=== PATIENT | female | born 1955 | race African-American/Black ===

== ENCOUNTER 2016-11-15 16:59 | Inpatient (IN) ==
[2016-11-15] MEDS ORDERED: ALBUTEROL 2.5 MG/3 ML NEB RESP TX PRN (17:06)
[2016-11-15] MEDS: PROPOFOL 1,000 MG/100 ML BOTTLE IV SCH ×2 (19:00→22:40)
--- NOTE | 2016-11-15 19:53 | Hospitalist History & Physical ---
Assessment and Plan (1) Acute respiratory failure with hypercapnia Status: Acute Assessment and plan: Patient currently intubated. We will repeat an arterial blood gas with intention of changing vent settings depending as needed. Will get pulmonary consultation in the morning. Obtain sputum Gram stain and culture. A chest x- ray in the morning. Patient is admitted to the intensive care unit and hospitalist service. (2) Status asthmaticus Status: Acute Assessment and plan: Aggressively treated with beta-2 agonists and ipratropium bromide. Patient should also be on high-dose steroids using Solu-Medrol 40 mg IV every 6 hours. Encourage pulmonary toilet continue sedation with Diprivan from in soft restraints for the next 24 hours. (3) Hypertension Status: Acute Assessment and plan: This is relatively controlled continue home medications. (4) Altered mental status Status: Acute Assessment and plan: From what I understand the patient arrived at [facility] unresponsive and CPR had been started in the field prior to coming to the hospital. Duration of CPR prior to intubation is unknown. Anoxic injury to the brain is a possibility but patient is not responsive to tactile stimulus and follows simple commands. History of Present Illness Chief complaint: Acute respiratory failure intubated History of present illness: Ms. Suárez is a 60 year old female transferred here from [facility] [place] been picked up by first responders with complaints of an asthmatic attack and subsequently needing intubation in the field. Patient reportedly was outside in the hot sun according to my colleagues was signed of this patient to me. Does have history of asthma. I do not know of any other exposure history that could have happened today. Nonetheless the patient was found to have insufficient respiratory status and a being entered and I noticed that the first arterial blood gas done prior to arrival he has profound respiratory acidosis with pH below 7. PCO2 was around 19 PO2 was adequate. Patient at that time was 100% oxygen supplementation. She does have an effective intubation here will repeat an ABG with intention to change vent settings as indicated. Home Medications Medication Instructions Recorded Confirmed Type Levocetirizine Dihydrochloride 5 mg PO DAILY 11/15/16 11/15/16 History [Xyzal] Lisinopril/Hydrochlorothiazide 2 each PO DAILY 11/15/16 11/15/16 History [Lisinopril-Hctz 20-12.5 mg Tab] Pantoprazole Tab [Protonix Tab] 40 mg PO DAILY 11/15/16 11/15/16 History Allergies Allergy/AdvReac Type Severity Reaction Status Date / Time egg Allergy Verified 11/15/16 19:53 milk Allergy Verified 11/15/16 19:53 tomato Allergy Verified 11/15/16 19:53 Medical,Surgical,& Family Hx - Medical History Cardio: History of: Hypertension Endocrine: History of: Thyroid Disorder Respiratory: History of: Asthma Gastrointestinal: History of: Ulcerative Colitis - Surgical History Cardiac Surgeries: Patient Denies: Cardiac Catheterization Abdominal Surgeries: Surgical HX of: Abdominal Surgery, Cholecystectomy, EGD Reproductive Surgeries: Surgical HX of;: Hysterectomy - Social History Smoking Status: Former smoker ROS unobtainable: due to endotracheal tube Review of systems: 12 point system screen is significant for the chief complaint history of presenting illness and past medical history Exam - Constitutional Vitals: Period Temp Pulse Resp BP Sys/Sparks Pulse Ox Last 24 Hr 97.2 F 96-104 18-23 0-171/0-81 100-100 General appearance: morbidly obese, other (Patient is sedated intubated on incommunicado) - Head Head exam: Present: normocephalic, atraumatic - Eye Pupils: Present: FELISHA - ENT ENT exam: Present: other (Orally intubated) - Neck Neck exam: Present: other (Pulmonary intubated no JVD midline trachea) - GI/Abdominal GI/Abdominal exam: Present: normal bowel sounds, soft - Extremities Exam Extremities exam: Present: other (I cannot assess effectively) - Neurological Exam Neurological exam: Present: other (Patient is sedated intubated) - Psychiatric Psychiatric exam: Present: other (Sedated) - Skin Skin exam: Present: normal color, warm, dry Results - Labs Lab Results: I have reviewed the past 24 hour labs (All labs are pending at this point)
[2016-11-15] MEDS ORDERED: PROPOFOL 1,000 MG/100 ML BOTTLE IV SCH (20:00)
[2016-11-15 20:15] LABS: ABG Base Excess -0.6 MMOL/L (-2.5-2.5); ABG HCO3 23.9 MMOL/L (20-26); ABG Oxygen Saturation 98.6 % (95-100); ABG PCO2 45.9 MM HG (35-48); ABG PH 7.353 (7.35-7.45); ABG TCO2 21.7 MMOL/L (23-27)
[2016-11-15 20:19] LABS: Basophils % 0.1 % (0.0-0.8); Eosinophils % 0.2 % (0.00-10.9); Hematocrit 34.9 VOL% (35.7-47.0); Hemoglobin 11.1 GM/DL (12.0-16.0); Immature Granulocytes % 0.6 %; Lymphocytes # 1.3 10*3/uL (1.4-4.0); Lymphocytes % 7.5 % (21.3-54.2); Mean Corpuscular HGB Conc 31.8 GM/DL (32-36); Mean Corpuscular Hemoglobin 28 PG (27-34); Mean Corpuscular Volume 86.6 FL (87-102); Mean Platelet Volume 11.8 FL (9.6-12.0); Monocytes # 0.6 10*3/uL (0.11-0.8); Monocytes % 3.4 % (1.7-12.7); Neutrophils # 15.5 10*3/uL (1.4-7.4); Neutrophils % 88.2 % (38.7-73.9); Platelet Count 224 T/CUMM (130-400); Red Blood Count 4.03 MC/CUMM (3.8-5.5); Red Cell Distribution Width 15.4 % (9.3-17.3); White Blood Count 17.6 T/CUMM (4-12)
[2016-11-15 20:29] LABS: PT Patient Result 10.6 SECS
[2016-11-15 20:38] LABS: Lactic Acid 3.3 MMOL/L (0.4-2.0)
[2016-11-15 20:45] LABS: Calcium 8.5 MG/DL (8.5-10.1)
[2016-11-15 20:46] LABS: Albumin 3.8 G/DL (3.4-5.0); Bilirubin,Total 0.7 MG/DL (0.2-1.0); Free T4 (Free Thyroxine) 1.1 NG/DL (0.76-1.46); Magnesium 2.4 MG/DL (1.8-2.4); Osmolality,Calculated 290.1 MOS/KG (273-304); Potassium 3.4 MMOL/L (3.5-5.1); Risk Ratio 3.89; Thyroid Stimulating Hormone 1.96 uIU/ml (0.358-3.74); Total Protein 6.9 G/DL (6.4-8.3); Troponin I Only 0.125 NG/ML (0.00-0.045); VLDL CHOLESTEROL 22.4 MG/DL
[2016-11-15] MEDS ORDERED: methylPREDNISolone SOD SUC 125 MG/2 ML VIAL IV SCH (21:00)
[2016-11-15] MEDS: SODIUM CHLORIDE 0.9% 1,000 ML IV SCH (21:56)
[2016-11-15 22:07] LABS: Apearance,Urine CLOUDY (Clear); Bilirubin,Urine Negative (Negative); Blood, Urine Negative (Negative); Glucose,Urine (UA) 50 mg/dL (Negative); Hyaline Casts,Urine 2 /LPF (0-3); Ketones,Urine 5 mg/dL (Negative); Mucus,Urine Occasional /LPF (Occasional); Nitrite,Urine Negative (Negative); Protein,Urine Negative; RBC,Urine 1 /HPF (0-4); Squamous Epithelial Cell,Urine Occasional /HPF (0-10); Urine Color Yellow (Yellow); Urine Specific Gravity 1.024 (1.001-1.035); Urine Urobilinogen < 2.0 EU/DL (0.2-1.0); WBC,Urine 1 /HPF (0-6)
[2016-11-15] MEDS ORDERED: ACETAMINOPHEN 325 MG TABLET PO PRN (22:09)
[2016-11-15 22:14] LABS: Barbiturates Screen,Urine Negative (Negative); Benzodiazepines Screen,Urine Positive (Negative); Cannabinoid Screen,Urine Negative (Negative); Opiate Screen,Urine Positive (Negative); Phencyclidine Screen,Urine Negative (Negative)
[2016-11-15] MEDS: ENOXAPARIN 40 MG/0.4 ML SYRINGE SUBCUT SCH (22:16)
[2016-11-15] MEDS: methylPREDNISolone SOD SUC 40 MG/1 ML VIAL IV SCH (22:17)
[2016-11-15] MEDS: PANTOPRAZOLE 40 MG VIAL IV SCH (22:17)
[2016-11-16] MEDS: PROPOFOL 1,000 MG/100 ML BOTTLE IV SCH ×5 (02:22→17:45)
[2016-11-16] MEDS: methylPREDNISolone SOD SUC 40 MG/1 ML VIAL IV SCH ×3 (04:16→21:46)
[2016-11-16] MEDS: POTASSIUM CHLORIDE RIDER 10 MEQ in PREMIX 1 EACH IV PRN ×3 (05:16→07:01)
[2016-11-16] MEDS: PIPERACILLIN/TAZOBACTAM 3,375 MG in SODIUM CHLORIDE 0.9% 100 ML IV SCH ×3 (05:17→21:46)
--- NOTE | 2016-11-16 06:24 | XRay Report ---
Portable chest Date: 11/16/2016 Clinical history: Acute respiratory failure Comparison: None Technique: Portable AP sitting chest Findings: Limited expiratory chest. The heart is minimally enlarged. Endotracheal tube is in satisfactory position with nasogastric tube seen entering the stomach. Atelectasis/infiltration at the right lung base and in the left mid to lower lung zone. Unremarkable mediastinum with degenerative changes. Impression: Limited expiratory chest with atelectasis/infiltration at the right lung base and in the left mid to lower lung zone. The supportive devices are in satisfactory position. PROCEDURE INTERPRETED AT [facility] DEPARTMENT OF RADIOLOGY Final Report Signed by: Dr. Akua Kwon
--- NOTE | 2016-11-16 06:45 | Pulmonology Consult Note ---
Assessment and Plan (1) Acute respiratory failure with hypercapnia Status: Acute Assessment and plan: ABGs better. Will reduce minute ventilation a little. I think we need a higher tidal volume because of her history of asthma. Start weaning when mental status is stable. Current Visit: Yes (2) Status asthmaticus Status: Acute Assessment and plan: Is not wheezing. Airway pressures are not high. Continuing with empiric steroids and bronchodilators. Her home medications appeared to be albuterol in several different forms as far as treatment of her asthma is concerned. She will definitely need a controller medication which we get her off the vent. Current Visit: Yes (3) Hypertension Status: Acute Assessment and plan: Blood pressure well controlled. Current Visit: Yes (4) Altered mental status Status: Acute Assessment and plan: She is moving about. Difficult to tell about her mental status with her on the propofol. We will hold it and assess. Current Visit: Yes History of Present Illness Chief complaint: Respiratory failure History of present illness: Ms. Suárez is a 60 year old female apparently had been working outside yesterday and was found down in her yard. She had an inhaler in her hand. She was picked up by ambulance and intubated and had CPR. Apparently has a history of asthma. Presently she is on the ventilator. Unable to obtain much more history from her. Most of the history is obtained from records. She had a marked respiratory acidosis initially and this is for the most part been corrected now. Home Medications Medication Instructions Recorded Confirmed Type Albuterol Inhaler [Proventil 2 puff INH Q6H PRN 11/15/16 11/15/16 History Inhaler] Levocetirizine Dihydrochloride 5 mg PO DAILY 11/15/16 11/15/16 History [Xyzal] Lisinopril/Hydrochlorothiazide 2 each PO DAILY 11/15/16 11/15/16 History [Lisinopril-Hctz 20-12.5 mg Tab] Pantoprazole Tab [Protonix Tab] 40 mg PO DAILY 11/15/16 11/15/16 History Allergies Allergy/AdvReac Type Severity Reaction Status Date / Time egg Allergy Verified 11/15/16 19:53 milk Allergy Verified 11/15/16 19:53 tomato Allergy Verified 11/15/16 19:53 ROS unobtainable: due to endotracheal tube Exam (Pulmonay) H&P - Constitutional Vitals: Period Temp Pulse Resp BP Sys/Sparks Pulse Ox Last 24 Hr 97.2 F-98.5 F 67-104 18-24 0-171/0-81 100-100 Exam: Vital signs are normal. Patient is trying to sit up in the bed. She does have propofol on board. Pupils react to light. Orotracheal tube in place. Neck is supple. Chest sounds clear. I do not hear any wheezing. Heart normal rate and rhythm no murmurs. Abdomen is soft bowel sounds present. Extremities no clubbing cyanosis or edema. Medical,Surgical,& Family Hx - Medical History Cardio: History of: Hypertension Endocrine: History of: Thyroid Disorder Respiratory: History of: Asthma Gastrointestinal: History of: Ulcerative Colitis - Surgical History Cardiac Surgeries: Patient Denies: Cardiac Catheterization Abdominal Surgeries: Surgical HX of: Abdominal Surgery, Cholecystectomy, EGD Reproductive Surgeries: Surgical HX of;: Hysterectomy - Social History Smoking Status: Former smoker Results - Labs CBC & BMP: 11/15/16 19:53 11/15/16 19:53 Lab Results: I have reviewed the past 24 hour labs - Diagnostic Findings Procedure: Chest x-ray: image reviewed by me (ET tube good position. Lungs relatively small but no visible infiltrates.)
[2016-11-16] MEDS: VANCOMYCIN INJ 1,750 MG in SODIUM CHLORIDE 0.9% 500 ML IV SCH ×2 (07:59→20:39)
[2016-11-16 08:41] LABS: ABG Base Excess -0.5 MMOL/L (-2.5-2.5); ABG Oxygen Saturation 98.9 % (95-100); ABG PCO2 47.6 MM HG (35-48); ABG PH 7.339 (7.35-7.45); ABG TCO2 23.5 MMOL/L (23-27)
[2016-11-16] MEDS: LISINOPRIL/HCTZ 20-12.5 MG TABLET PO SCH (09:04)
[2016-11-16] MEDS: CETIRIZINE 10 MG TABLET PO SCH (09:04)
[2016-11-16] MEDS ORDERED: DEXMEDETOMIDINE 200 MCG in SODIUM CHLORIDE 0.9% 48 ML IV SCH (09:30)
--- NOTE | 2016-11-16 09:58 | Hospitalist Progress Note ---
Assessment and Plan (1) Acute respiratory failure with hypercapnia Status: Acute Current Visit: Yes (2) Status asthmaticus Status: Acute Current Visit: Yes (3) Hypertension Status: Acute Current Visit: Yes (4) Altered mental status Status: Acute Assessment and plan: Patient's ABG display is pH of 7.339. Chemistry available was the one drawn last night. Did note that H her lactic acid is elevated. She is hypertensive and on broad coverage antibiotics. She is not wheezing. We will also have her on empiric steroids. She should be able to be weaned from the ventilator fairly soon since it appears that her mental status is improving. I repeat labs in the morning. Current Visit: Yes Hospitalist: Subjective Interval history: Patient will wake up and follow commands only complains about pain in her throat area. Exam - Constitutional Vitals: Period Temp Pulse Resp BP Sys/Sparks Pulse Ox Last 24 Hr 97.2 F-98.5 F 67-104 11-24 0-171/0-81 96-100 General appearance: normal weight - Head Head exam: Present: normal inspection - ENT ENT exam: Present: other (ET tube in place) - Neck Neck exam: Present: normal inspection - Respiratory Respiratory exam: Present: clear to auscultation bilaterally - Cardiovascular Cardiovascular exam: Present: regular rate and rhythm - GI/Abdominal GI/Abdominal exam: Present: normal bowel sounds - Extremities Exam Extremities exam: Present: normal inspection - Psychiatric Psychiatric exam: Present: other (Currently sedated) - Skin Skin exam: Present: normal color Results - Labs CBC & BMP: 11/15/16 19:53 11/15/16 19:53
[2016-11-16] MEDS: HYDROmorphone 2 MG/1 ML VIAL IV PRN ×2 (10:15→21:15)
[2016-11-16] MEDS: SODIUM CHLORIDE 0.9% 1,000 ML IV SCH ×3 (11:00→20:39)
--- NOTE | 2016-11-16 12:35 | ECHO Report ---
Melodie Suárez Exam Date: 11/16/2016 09:07 Referring Physician: Technologist: Johanny Cole Age: 60 Ht (in): Wt (lb): Gender: F Exam Location: [facility] Echo Indications: SOB, acute resp. failure, asthmaticus, altered mental status BP: 103 / 57 HR: 69 Rhythm: Sinus Technical Quality: IMPRESSIONS Normal chamber sizes 2-3+ concentric LVH Hyperdynamic LV systolic function with ejection fraction estimated be 70% without segmental wall motion normality 1+ tricuspid regurgitation with RVSP 35 mmHg plus RAP MEASUREMENTS (Male / Female) Normal Values 2D ECHO LV Diastolic Diameter PLAX 3.8 cm 4.2 - 5.9 / 3.9 - 5.3 cm LV Systolic Diameter PLAX 2.6 cm LV Fractional Shortening PLAX 30.5 % IVS Diastolic Thickness 1.5 cm 0.6 - 1.0 / 0.6 - 0.9 cm LVPW Diastolic Thickness 1.2 cm 0.6 - 1.0 / 0.6 - 0.9 cm RV Internal Dim ED PLAX 3.0 cm Aortic Root Diameter 3.3 cm LA Systolic Diameter LX 3.6 cm 3.0 - 4.0 / 2.7 - 3.8 cm DOPPLER TR Peak Velocity 296.0 cm/s TR Peak Gradient 35.0 mmHg FINDINGS Left Ventricle Normal left ventricular cavity size. Mild concentric left ventricular hypertrophy with diastolic dysfunction. Left ventricular ejection fraction is estimated at Right Ventricle Mildly increased right ventricular size. Right Atrium The right atrium is mildly enlarged. Left Atrium The left atrium is mildly enlarged. Mitral Valve Mild mitral valve sclerosis. Trace mitral valve regurgitation. Aortic Valve Mild aortic valve sclerosis. Tricuspid Valve Morphologically normal tricuspid valve. Moderate tricuspid valve regurgitation. Tricuspid regurgitation velocities suggest a PAP of 45 mmHg. Pulmonic Valve Morphologically normal pulmonic valve. Pericardium No pericardial effusion. Aorta Normal size aortic root and proximal ascending aorta. Richard Prado (Electronically Signed) Final Date: 16 November 2016 12:34
[2016-11-16] MEDS ORDERED: fentaNYL INJ 1,250 MCG in SODIUM CHLORIDE 0.9% 225 ML IV SCH (14:30)
[2016-11-16] MEDS ORDERED: DEXMEDETOMIDINE 400 MCG in SODIUM CHLORIDE 0.9% 96 ML IV SCH (15:00)
[2016-11-16] MEDS: ENOXAPARIN 40 MG/0.4 ML SYRINGE SUBCUT SCH (21:42)
[2016-11-16] MEDS: PANTOPRAZOLE 40 MG VIAL IV SCH (21:43)
[2016-11-17] MEDS: ALBUTEROL/IPRATROPIUM 3 ML NEB RESP TX PRN ×3 (01:08→19:26)
[2016-11-17] MEDS: PROPOFOL 1,000 MG/100 ML BOTTLE IV SCH ×2 (03:40→17:56)
[2016-11-17 04:01] LABS: Basophils % 0.1 % (0.0-0.8); Hematocrit 31.4 VOL% (35.7-47.0); Hemoglobin 10.2 GM/DL (12.0-16.0); Immature Granulocytes % 1.1 %; Immature Granulocytes Absolute 0.28 #; Lymphocytes # 1.5 10*3/uL (1.4-4.0); Lymphocytes % 5.9 % (21.3-54.2); Mean Corpuscular HGB Conc 32.5 GM/DL (32-36); Mean Corpuscular Hemoglobin 28 PG (27-34); Mean Corpuscular Volume 85.6 FL (87-102); Mean Platelet Volume 12.5 FL (9.6-12.0); Monocytes # 0.7 10*3/uL (0.11-0.8); Monocytes % 2.8 % (1.7-12.7); Neutrophils # 22.4 10*3/uL (1.4-7.4); Neutrophils % 90.1 % (38.7-73.9); Platelet Count 224 T/CUMM (130-400); Red Blood Count 3.67 MC/CUMM (3.8-5.5); Red Cell Distribution Width 16.2 % (9.3-17.3); White Blood Count 24.9 T/CUMM (4-12)
[2016-11-17 04:02] LABS: ABG Base Excess -0.3 MMOL/L (-2.5-2.5); ABG HCO3 24.2 MMOL/L (20-26); ABG Oxygen Saturation 99.3 % (95-100); ABG PCO2 38.5 MM HG (35-48); ABG PH 7.407 (7.35-7.45)
[2016-11-17] MEDS: HYDROmorphone 2 MG/1 ML VIAL IV PRN (04:03)
[2016-11-17 04:44] LABS: Alanine Aminotransferase 26 U/L (13-56); Albumin 3.3 G/DL (3.4-5.0); Alkaline Phosphatase 65 U/L (45-117); Aspartate Amino Transferase 14 U/L (0-37); Bilirubin,Total < 0.39 MG/DL (0.2-1.0); Blood Urea Nitrogen 19 MG/DL (7-18); Calcium 8.5 MG/DL (8.5-10.1); Glucose 130 MG/DL (74-106); Osmolality,Calculated 295.4 MOS/KG (273-304); Potassium 3.7 MMOL/L (3.5-5.1); Sodium 147 MMOL/L (136-145); Total Protein 6.1 G/DL (6.4-8.3)
[2016-11-17 04:59] LABS: Band Neutrophils 2 % (0-10); Lymphocytes 7 % (20-55); Metamyelocytes 3 %; Platelet Estimate Normal; Segmented Neutrophils 86 % (50-85); Total Cells Counted 100
[2016-11-17] MEDS: PIPERACILLIN/TAZOBACTAM 3,375 MG in SODIUM CHLORIDE 0.9% 100 ML IV SCH ×3 (05:20→20:35)
[2016-11-17] MEDS: methylPREDNISolone SOD SUC 40 MG/1 ML VIAL IV SCH ×3 (05:21→20:37)
[2016-11-17] MEDS: SODIUM CHLORIDE 0.9% 1,000 ML IV SCH ×3 (05:24→20:11)
--- NOTE | 2016-11-17 07:11 | XRay Report ---
Portable chest Date: 11/17/2016 Clinical history: Ventilator Comparison: 11/16/2016 Technique: Portable AP sitting chest Findings: The heart is minimally enlarged with stable supportive devices. Progressive parenchymal findings with minimally larger pleural effusions. Stable mediastinum and osseous structures. Impression: Limited expiratory chest with minimally progressive atelectasis/infiltration/edema at the lung bases. Minimally larger small pleural effusions. Supportive devices remain in satisfactory position. PROCEDURE INTERPRETED AT [facility] DEPARTMENT OF RADIOLOGY Final Report Signed by: Dr. Akua Kwon
--- NOTE | 2016-11-17 07:18 | Pulmonology Progress Note ---
Pulmonary - PN: Subj Interval history: This 60-year-old white female had acute respiratory failure. She has a history of asthma and had status asthmaticus. She is on the ventilator. Much more alert. Tolerating CPAP. Should be able to extubate. Exam (Progress Note) - Constitutional Vitals: Period Temp Pulse Resp BP Sys/Sparks Pulse Ox Last 24 Hr 96.1 F-97.6 F 38-91 10-23 102-172/53-87 96-100 Exam: Patient responsive nodding to questions. Vital signs normal. Pupils react to light. Orotracheal tube in place. Neck supple no bruits. Chest reveals prolonged expiratory phase but no wheezes. I do not hear any rales or rhonchi. Heart rate is in the 40s no murmurs. Abdomen soft nontender no masses. Extremities no clubbing cyanosis edema. Calves nontender. Results - Labs CBC & BMP: 11/17/16 03:40 11/17/16 03:40 Lab Results: I have reviewed the past 24 hour labs - Diagnostic Findings Procedure: Chest x-ray: image reviewed by me (Mild basilar atelectasis. ET tube good position.) Assessment and Plan (1) Acute respiratory failure with hypercapnia Status: Acute Assessment and plan: ABGs better. Will reduce minute ventilation a little. I think we need a higher tidal volume because of her history of asthma. Start weaning when mental status is stable. 11/17/2016 ABGs improved. Will check mechanics and see if we can get her extubated. Current Visit: Yes (2) Status asthmaticus Status: Acute Assessment and plan: Is not wheezing. Airway pressures are not high. Continuing with empiric steroids and bronchodilators. Her home medications appeared to be albuterol in several different forms as far as treatment of her asthma is concerned. She will definitely need a controller medication which we get her off the vent. 11/17/2016 no bronchospasm. However pressures good. Current Visit: Yes (3) Hypertension Status: Acute Assessment and plan: Blood pressure well controlled. 11/17/2016 she has LVH on echo but hyperdynamic left ventricle. Blood pressure well controlled Current Visit: Yes (4) Altered mental status Status: Acute Assessment and plan: She is moving about. Difficult to tell about her mental status with her on the propofol. We will hold it and assess. 11/17/2016 patient appropriately responsive. Nods to questions squeezes fingers on command Current Visit: Yes
[2016-11-17] MEDS: VANCOMYCIN INJ 1,750 MG in SODIUM CHLORIDE 0.9% 500 ML IV SCH ×2 (08:20→20:36)
[2016-11-17] MEDS: LISINOPRIL/HCTZ 20-12.5 MG TABLET PO SCH (08:21)
[2016-11-17] MEDS: CETIRIZINE 10 MG TABLET PO SCH (08:21)
[2016-11-17 09:44] LABS: ABG Base Excess -0.9 MMOL/L (-2.5-2.5); ABG HCO3 24.9 MMOL/L (20-26); ABG Oxygen Saturation 97.4 % (95-100); ABG PCO2 46.4 MM HG (35-48); ABG PH 7.348 (7.35-7.45); ABG PO2 103.5 MM HG (80-95); ABG TCO2 26.4 MMOL/L (23-27)
[2016-11-17 10:57] LABS: ABG Base Excess -1.1 MMOL/L (-2.5-2.5); ABG HCO3 23.4 MMOL/L (20-26); ABG Oxygen Saturation 92.7 % (95-100); ABG PCO2 47.5 MM HG (35-48); ABG PO2 69.2 MM HG (80-95)
--- NOTE | 2016-11-17 17:45 | Hospitalist Progress Note ---
Assessment and Plan (1) Status asthmaticus Status: Resolved Assessment and plan: Patient is now extubated. Current Visit: Yes (2) Hypertension Status: Chronic Current Visit: Yes Qualifiers: Hypertension type: essential hypertension Qualified Code(s): I10 - Essential (primary) hypertension Hospitalist: Subjective Interval history: The patient is resting she is now extubated. She continues to do well. Hemodynamics are stable. Exam - Constitutional Vitals: Period Temp Pulse Resp BP Sys/Sparks Pulse Ox Last 24 Hr 96.1 F-98.8 F 38-78 11-23 113-165/53-81 94-100 General appearance: normal weight - Head Head exam: Present: normal inspection - Eye Eye exam: Present: EOMI - Respiratory Respiratory exam: Present: clear to auscultation bilaterally - Cardiovascular Cardiovascular exam: Present: regular rate and rhythm - GI/Abdominal GI/Abdominal exam: Present: normal bowel sounds - Extremities Exam Extremities exam: Present: normal inspection Results - Labs CBC & BMP: 11/17/16 03:40 11/17/16 03:40
[2016-11-17] MEDS: ENOXAPARIN 40 MG/0.4 ML SYRINGE SUBCUT SCH (20:35)
[2016-11-17] MEDS: PANTOPRAZOLE 40 MG VIAL IV SCH (20:37)
[2016-11-18] MEDS: SODIUM CHLORIDE 0.9% 1,000 ML IV SCH ×2 (01:05→13:31)
[2016-11-18 05:04] LABS: Basophils % 0.1 % (0.0-0.8); Eosinophils % 0.1 % (0.00-10.9); Hematocrit 30.6 VOL% (35.7-47.0); Hemoglobin 9.5 GM/DL (12.0-16.0); Immature Granulocytes % 2.4 %; Immature Granulocytes Absolute 0.46 #; Lymphocytes # 1.5 10*3/uL (1.4-4.0); Lymphocytes % 7.7 % (21.3-54.2); Mean Corpuscular Hemoglobin 28 PG (27-34); Mean Corpuscular Volume 88.7 FL (87-102); Mean Platelet Volume 11.9 FL (9.6-12.0); Monocytes # 0.5 10*3/uL (0.11-0.8); Monocytes % 2.7 % (1.7-12.7); NRBC # 0.02 10*3/uL; Neutrophils # 16.6 10*3/uL (1.4-7.4); Platelet Count 204 T/CUMM (130-400); Red Blood Count 3.45 MC/CUMM (3.8-5.5); Red Cell Distribution Width 16.4 % (9.3-17.3)
[2016-11-18] MEDS: PIPERACILLIN/TAZOBACTAM 3,375 MG in SODIUM CHLORIDE 0.9% 100 ML IV SCH ×3 (05:22→22:46)
[2016-11-18] MEDS: methylPREDNISolone SOD SUC 40 MG/1 ML VIAL IV SCH ×3 (05:22→20:52)
[2016-11-18 05:34] LABS: Osmolality,Calculated 290.7 MOS/KG (273-304); Potassium 3.9 MMOL/L (3.5-5.1)
--- NOTE | 2016-11-18 07:07 | XRay Report ---
Exam: XR chest 1V portable Date: 11/18/2016 4:00 AM Indication: Follow-up Comparison: 11/17/2016. Findings:: Endotracheal tube nasogastric tube have been removed. Cardiomegaly is present. External cardiac leads are present. No pneumothorax. Tiny low volume left effusion and interstitial thickening in the left perihilar region. Mild dextroscoliotic curve in the thoracic spine present. Impression: 1. Removal of endotracheal tube nasogastric tube 2. Cardiomegaly and low volume left effusion and mild interstitial thickening in the perihilar regions left greater than right with minimal right basilar atelectasis PROCEDURE INTERPRETED AT [facility] DEPARTMENT OF RADIOLOGY Final Report Signed by: Dr. Mitchell Mcfarland
[2016-11-18] MEDS: ALBUTEROL/IPRATROPIUM 3 ML NEB RESP TX PRN (08:01)
--- NOTE | 2016-11-18 08:21 | Pulmonology Progress Note ---
Pulmonary - PN: Subj Interval history: This 60-year-old white female had acute respiratory failure. She has a history of asthma and had status asthmaticus. She is on the ventilator. Much more alert. Tolerating CPAP. Should be able to extubate. 11/18/2016 we were able to get her extubated yesterday. Oxygen saturations in the upper 90s on room air. She has the sensation that she needs a breathing treatment but she sounds clear. Apparently has severe asthma and was in status asthmaticus. This has improved with treatment. She should be able to go to the floor today Exam (Progress Note) - Constitutional Vitals: Period Temp Pulse Resp BP Sys/Sparks Pulse Ox Last 24 Hr 98.0 F-98.9 F 46-78 11-23 116-175/7-99 94-100 Exam: Patient responsive nodding to questions. Vital signs normal. Pupils react to light. Patient now on room air and is oriented. Neck supple no bruits. Chest reveals prolonged expiratory phase but no wheezes. I do not hear any rales or rhonchi. Heart rate is in the 50s no murmurs. Abdomen soft nontender no masses. Extremities no clubbing cyanosis edema. Calves nontender. Results - Labs CBC & BMP: 11/18/16 04:30 11/18/16 04:30 Lab Results: I have reviewed the past 24 hour labs - Diagnostic Findings Procedure: Chest x-ray: image reviewed by me (Minimal left basilar infiltrate) Assessment and Plan (1) Acute respiratory failure with hypercapnia Status: Acute Assessment and plan: ABGs better. Will reduce minute ventilation a little. I think we need a higher tidal volume because of her history of asthma. Start weaning when mental status is stable. 11/17/2016 ABGs improved. Will check mechanics and see if we can get her extubated. 11/18/2016 we were able to get her extubated. She is doing well with room air at present. Acute respiratory failure has resolved Current Visit: Yes (2) Status asthmaticus Status: Resolved Assessment and plan: Is not wheezing. Airway pressures are not high. Continuing with empiric steroids and bronchodilators. Her home medications appeared to be albuterol in several different forms as far as treatment of her asthma is concerned. She will definitely need a controller medication which we get her off the vent. 11/17/2016 no bronchospasm. However pressures good. 11/18/2016 she has chronic asthma. However status has resolved. Current Visit: Yes (3) Hypertension Status: Chronic Assessment and plan: Blood pressure well controlled. 11/17/2016 she has LVH on echo but hyperdynamic left ventricle. Blood pressure well controlled 11/18/2016 blood pressures elevated. She has LVH indicating chronic hypertension. Needs medications adjusted Current Visit: Yes Qualifiers: Hypertension type: essential hypertension Qualified Code(s): I10 - Essential (primary) hypertension (4) Altered mental status Status: Acute Assessment and plan: She is moving about. Difficult to tell about her mental status with her on the propofol. We will hold it and assess. 11/17/2016 patient appropriately responsive. Nods to questions squeezes fingers on command 11/18/2016 patient alert and oriented this morning. Has good voice. Current Visit: Yes
[2016-11-18] MEDS: VANCOMYCIN INJ 1,750 MG in SODIUM CHLORIDE 0.9% 500 ML IV SCH ×2 (11:31→19:48)
[2016-11-18] MEDS: LISINOPRIL/HCTZ 20-12.5 MG TABLET PO SCH (11:53)
[2016-11-18] MEDS: CETIRIZINE 10 MG TABLET PO SCH (11:54)
[2016-11-18] MEDS: amLODIPine 5 MG TABLET PO SCH (11:54)
--- NOTE | 2016-11-18 12:26 | Hospitalist Progress Note ---
Assessment and Plan (1) Status asthmaticus Status: Resolved Assessment and plan: Patient is stable Current Visit: Yes (2) Hypertension Status: Chronic Current Visit: Yes Qualifiers: Hypertension type: essential hypertension Qualified Code(s): I10 - Essential (primary) hypertension Hospitalist: Subjective Interval history: Patient is resting comfortably no acute changes. She has been extubated for the past 24 hours and has been without any complaints or difficulties. Plan to transfer to floor today. Exam - Constitutional Vitals: Period Temp Pulse Resp BP Sys/Sparks Pulse Ox Last 24 Hr 98.0 F-98.9 F 46-73 15-22 116-181/7-99 95-100 General appearance: normal weight - Head Head exam: Present: normal inspection - Eye Eye exam: Present: EOMI - Respiratory Respiratory exam: Present: clear to auscultation bilaterally - Cardiovascular Cardiovascular exam: Present: regular rate and rhythm - GI/Abdominal GI/Abdominal exam: Present: normal bowel sounds - Extremities Exam Extremities exam: Present: normal inspection - Neurological Exam Neurological exam: Present: alert - Psychiatric Psychiatric exam: Present: normal affect - Skin Skin exam: Present: normal color Results - Labs CBC & BMP: 11/18/16 04:30 11/18/16 04:30
[2016-11-18] MEDS ORDERED: ALBUTEROL 2.5 MG/3 ML NEB RESP TX PRN (16:36)
[2016-11-18] MEDS: ENOXAPARIN 40 MG/0.4 ML SYRINGE SUBCUT SCH (20:52)
[2016-11-19 05:07] LABS: Basophils % 0.1 % (0.0-0.8); Eosinophils % 0.1 % (0.00-10.9); Hematocrit 31.3 VOL% (35.7-47.0); Hemoglobin 9.9 GM/DL (12.0-16.0); Immature Granulocytes % 4.6 %; Immature Granulocytes Absolute 0.79 #; Lymphocytes # 1.7 10*3/uL (1.4-4.0); Mean Corpuscular HGB Conc 31.6 GM/DL (32-36); Mean Corpuscular Hemoglobin 28 PG (27-34); Mean Corpuscular Volume 87.2 FL (87-102); Mean Platelet Volume 12.3 FL (9.6-12.0); Monocytes # 0.5 10*3/uL (0.11-0.8); Monocytes % 3.1 % (1.7-12.7); Neutrophils % 82.1 % (38.7-73.9); Platelet Count 207 T/CUMM (130-400); Red Blood Count 3.59 MC/CUMM (3.8-5.5); Red Cell Distribution Width 15.9 % (9.3-17.3)
[2016-11-19 05:47] LABS: Hypochromasia 1+; Lymphocytes 12 % (20-55); Segmented Neutrophils 85 % (50-85); Total Cells Counted 100
[2016-11-19 05:48] LABS: Microcytosis Slight; Platelet Estimate Normal
[2016-11-19] MEDS: PIPERACILLIN/TAZOBACTAM 3,375 MG in SODIUM CHLORIDE 0.9% 100 ML IV SCH ×3 (05:55→22:46)
[2016-11-19] MEDS: methylPREDNISolone SOD SUC 40 MG/1 ML VIAL IV SCH ×3 (05:55→14:53)
[2016-11-19] MEDS: amLODIPine 5 MG TABLET PO SCH (08:42)
[2016-11-19] MEDS: CETIRIZINE 10 MG TABLET PO SCH (08:43)
[2016-11-19] MEDS: PANTOPRAZOLE 40 MG TABLET PO SCH (08:43)
[2016-11-19] MEDS: LISINOPRIL/HCTZ 20-12.5 MG TABLET PO SCH (08:43)
[2016-11-19] MEDS: VANCOMYCIN INJ 1,750 MG in SODIUM CHLORIDE 0.9% 500 ML IV SCH ×2 (10:38→20:09)
[2016-11-19] MEDS ORDERED: amLODIPine 5 MG TABLET PO ONE (14:29)
--- NOTE | 2016-11-19 14:34 | Hospitalist Progress Note ---
Assessment and Plan - Time spent with patient Time spent with patient: Less than 30 minutes (1) Leukocytosis Status: Acute Assessment and plan: Patient seen and evaluated this morning and there were no acute events overnight. She reports feeling much improved when compared to admission. Her lungs are coarse but clear and thus will begin to wean her steroids. Currently on 60 mg of IV Solu-Medrol Q8. Will increase the interval to q. 12. Continue with Vanc and Zosyn for now for treatment of bacterial pneumonia. Continue all inhalers as well. We will slowly wean to orals and then likely prepare for discharge in the next 1-2 days. Of note, her blood pressure has been somewhat elevated with systolic pressures in the 160s. We will go ahead and increase her amlodipine to 10 mg daily. Will likely see a benefit after several days of the increased dosage. Current Visit: Yes (2) Acute respiratory failure with hypercapnia Status: Resolved Current Visit: Yes (3) Status asthmaticus Status: Resolved Current Visit: Yes (4) Hypertension Status: Chronic Current Visit: Yes Qualifiers: Hypertension type: essential hypertension Qualified Code(s): I10 - Essential (primary) hypertension (5) Bacterial pneumonia Status: Acute Current Visit: Yes Hospitalist: Subjective Interval history: initiated and was transferred out of the ICU to the floor on yesterday. She had been extubated for approximately 24 hours prior to transfer out. She has been admitted for exacerbation of asthma which required intubation. She is currently much improved from the standpoint and continues on high-dose IV steroids, antibiotics, and inhaler therapies. She reports that her breathing is markedly improved but that she continues to feel a little weak. Exam - Constitutional Vitals: Period Temp Pulse Resp BP Sys/Sparks Pulse Ox Last 24 Hr 97.6 F-98.2 F 58-72 18-24 137-165/62-82 93-97 Exam: General appearance: obese - Head Head exam: Present: normal inspection - Eye Eye exam: Present: EOMI - Respiratory Respiratory exam: Present: course but clear to auscultation bilaterally. - Cardiovascular Cardiovascular exam: Present: regular rate and rhythm - GI/Abdominal GI/Abdominal exam: Present: normal bowel sounds - Extremities Exam Extremities exam: Present: normal inspection Results - Labs CBC & BMP: 11/19/16 03:36 11/18/16 04:30
--- NOTE | 2016-11-19 19:29 | Pulmonology Progress Note ---
Pulmonary - PN: Subj Interval history: 60-year-old female admitted for status asthmaticus requiring mechanical ventilation. Patient was extubated 11/17 and has done well since. Today she has no acute pulmonary complaints and states her breathing continues to improve. Exam (Progress Note) - Constitutional Vitals: Period Temp Pulse Resp BP Sys/Sparks Pulse Ox Last 24 Hr 97.6 F-98.1 F 58-72 18-24 137-165/62-82 93-97 General appearance: morbidly obese - Head Head exam: Present: normal inspection - Eye Eye exam: Present: EOMI Pupils: Present: FELISHA - Neck Neck exam: Present: normal inspection - Respiratory Respiratory exam: Present: rhonchi (Scattered). Absent: accessory muscle use, rales, wheezes - Cardiovascular Cardiovascular exam: Present: regular rate and rhythm - GI/Abdominal GI/Abdominal exam: Present: normal bowel sounds, soft - Extremities Exam Extremities exam: Present: normal inspection - Neurological Exam Neurological exam: Present: alert, oriented X3 - Skin Skin exam: Present: normal color, warm, dry Results - Labs CBC & BMP: 11/19/16 03:36 11/18/16 04:30 Assessment and Plan (1) Acute respiratory failure with hypercapnia Status: Resolved Assessment and plan: Significantly improved from admission. Extubated 11/17. Current Visit: Yes (2) Status asthmaticus Status: Resolved Assessment and plan: Significantly improved on current therapy of bronchodilators and steroids. Continue current management with plan for slow steroid taper. Current Visit: Yes
[2016-11-19] MEDS: ENOXAPARIN 40 MG/0.4 ML SYRINGE SUBCUT SCH (22:46)
[2016-11-20] MEDS: methylPREDNISolone SOD SUC 40 MG/1 ML VIAL IV SCH (02:53)
[2016-11-20] MEDS: PIPERACILLIN/TAZOBACTAM 3,375 MG in SODIUM CHLORIDE 0.9% 100 ML IV SCH (05:40)
[2016-11-20] MEDS: ALBUTEROL/IPRATROPIUM 3 ML NEB RESP TX PRN (06:14)
[2016-11-20] MEDS: CETIRIZINE 10 MG TABLET PO SCH (08:16)
[2016-11-20] MEDS: LISINOPRIL/HCTZ 20-12.5 MG TABLET PO SCH (08:16)
[2016-11-20] MEDS: PANTOPRAZOLE 40 MG TABLET PO SCH (08:16)
[2016-11-20] MEDS ORDERED: amLODIPine 10 MG TABLET PO SCH (09:00)
[2016-11-20] MEDS: VANCOMYCIN INJ 1,750 MG in SODIUM CHLORIDE 0.9% 500 ML IV SCH (09:48)
--- NOTE | 2016-11-20 09:50 | Discharge Summary ---
Hospital Course - Hospital Course Hospital Course: Ms. Suárez is a 60-year-old -[place] female who was admitted on the above admit date transferred from an outside hospital intubated secondary to an asthmatic attack. She was intubated in the field by first responders. She reported being hot outside in the sun and this exposure history has been known to cause her to have asthma attacks. Upon evaluation, she was noted to have a profound respiratory acidosis but with adequate oxygenation. She was on 100% oxygen supplementation at the time. She remained intubated and therefore was admitted to the ICU for further care. Pulmonary medicine was consulted and managed her vent. She was empirically started on antibiotics given concerns for bacterial pneumonia and also started on steroids. She remained intubated and rested on the vent for approx. 2 days at which point she was extubated. 24 hours after intubation, she was transferred to the floor. Patient remained on high dose IV steroids, antibiotics, breathing treatments, PPI, and Cetirizine. Pulmonary medicine has been following along. (Appreciate their assistance). Patient did have some episodes of mildly elevated BP readings and thus we've increased her lisinopril to 30 mg with adequate blood pressure control. Ms. Suárez has done well over the past 2 days on the floor with the regimen as noted above. On exam, her lungs are clear and without any evidence of wheezing- neither inspiratory nor expiratory. She had good air movement. She reports that she has been ambulatory down the hallway without any difficulty and that she feels that she is getting stronger. She understands the importance of continuing all of her medications as outlined, through to completion. I stressed the importance of continuing the slow tapered steroids as a vital component of her treatment. We will continue her antibiotics to complete a 10 day course which will be 5 additional days of oral antibiotics for bacterial pneumonia. She has reached maximal benefit of this hospitalization and is ready for discharge home. She reports that she missed her follow-up appointment with her allergy and immunology physician as this appointment was on the . We will arrange for her to have that appointment rescheduled for a quick follow-up post-hospitalization. - Time spent with patient Time with patient DS: Less than 30 minutes Diagnosis - Discharge Diagnosis (1) Leukocytosis Status: Acute (2) Acute respiratory failure with hypercapnia Status: Resolved (3) Status asthmaticus Status: Resolved (4) Hypertension Status: Chronic (5) Bacterial pneumonia Status: Acute Discharge Plan - Discharge Data Disposition: Disch To Home/Self Care Condition at Discharge: Stable Discharge Diet: heart healthy, low salt diet Activity: resume usual activities as tolerated Hygiene: no restrictions Weight Bearing at Discharge: full weight bearing Driving: no restrictions Contact your physician if you experience:: Shortness of breath - Discharge Medications New Amoxicillin/Clav Tab [Augmentin Tab] 875 mg PO BID #16 tablet Doxycycline Hyclate Cap [Vibramycin Cap] 100 mg PO DAILY #8 capsule predniSONE TAB [PredniSONE] See Taper PO BID #52 tablet amLODIPine [Norvasc] 10 mg PO DAILY #30 tablet Continue Pantoprazole Tab [Protonix Tab] 40 mg PO DAILY Levocetirizine Dihydrochloride [Xyzal] 5 mg PO DAILY Lisinopril/Hydrochlorothiazide [Lisinopril-Hctz 20-12.5 mg Tab] 2 each PO DAILY Albuterol Inhaler [Proventil Inhaler] 2 puff INH Q6H PRN PRN Reason: Shortness Of Breath/Wheezing - Follow Up or Referral - Forms/Instructions Additional Discharge Instructions: Follow-up with Dr. Rock in [place] within 2 weeks of discharge. Exam - Constitutional Vitals: Period Temp Pulse Resp BP Sys/Sparks Pulse Ox Last 24 Hr 97.3 F-98.4 F 55-84 16-24 132-162/55-82 93-98 Exam: General appearance: obese - Head Head exam: Present: normal inspection - Eye Eye exam: Present: EOMI - Respiratory Respiratory exam: Present: clear to auscultation bilaterally. Absent: wheezing - Cardiovascular Cardiovascular exam: Present: regular rate and rhythm - GI/Abdominal GI/Abdominal exam: Present: normal bowel sounds - Extremities Exam Extremities exam: Present: normal inspection Discharge Results Procedures and tests throughout hospitalization: Pending Orders 11/15/16 19:53 Blood Culture Stat Labs on day of discharge: Preliminary micro results at discharge 11/15/16 19:53 Blood Culture - Preliminary Blood No growth at 3 days 11/15/16 19:53 Blood Culture - Preliminary Blood No growth at 3 days DS: Provider Date of admission: 11/15/16 18:59 Primary care physician: . No PCP Attending physician on admission: Hussain Foley MD Consults: 11/15/16 17:10 Consult to Physician [CONS] Routine Comment: Consulting Provider: Steven Leonard Consulting Provider Notified: Yes When should Consulting Provider be notified: Now Consult to Specialist Group: Pulmonology Date Notified: 11/16/16 Consult Notification Comment: ALREADY SEEN PT THIS AM 11/16/16 04:37 Consult to Pharmacy [CONS] Routine Reason for Pharmacy Consult: Dose/Manage Vancomycin Discharging clinician: Kristan Mars MD Expected date of discharge: 11/20/16
[2016-11-20 12:22] VITALS: BP 168/75
[2016-11-20] MEDS ORDERED: AMOXICILLIN/CLAV 875 MG TABLET PO SCH (21:00)
[2016-11-20] MEDS ORDERED: predniSONE 20 MG TABLET PO SCH (21:00)
[2016-11-21] MEDS ORDERED: DOXYCYCLINE HYCLATE 100 MG CAPSULE PO SCH (09:00)
== END 2016-11-20 13:48 | disposition home or self-care (01) | DRG 208 ==
LOC: N.ICU 18:59 → SUATTDRO 18:59 → N.5E 11-18 16:06 → N.2E 11-18 16:11
PROVIDERS: ADMIT Internal Medicine Infectious Disease; ATTEND Internal Medicine

== ENCOUNTER 2017-02-17 08:09 | Inpatient (IN) ==
[2017-02-17] MEDS ORDERED: PROPOFOL 1,000 MG/100 ML BOTTLE IV ONE (08:39)
[2017-02-17] MEDS: PROPOFOL 1,000 MG/100 ML BOTTLE IV SCH ×3 (08:45→22:39)
--- NOTE | 2017-02-17 09:07 | Emergency Department Note ---
Arrival - Arrival Chief Complaint: Shortness of Breath Stated Complaint: TRANSFER FROM [facility], INTUBATED ED Nursing Triage Note: PT TRANSFERRED FROM [facility] FOR EVALUATION OF RESP DISTRESS. PT WAS INTUBATED AT [facility]- 7.5 ETT, Mode of Arrival: Stretcher Limitations: Altered Mental Status Source: EMS, Old Records Reviewed Time Seen by Provider: 02/17/17 09:02 - History of Present Illness HPI Narrative: This is a 61-year-old female who was transferred from [facility] after she had a respiratory arrest at [facility]. Patient is currently intubated and is no other history available. According to the records from [facility] she quit breathing when EMS pulled up to the ambulance door. She was intubated there at [facility] and her x-ray did not show any infiltrates. Patient glucose was 272 at [facility] her potassium 5.2 the remainder of her chemistries were normal. Patient did have a white blood count of 29,000 at [facility] and her hemoglobin was 12 and hematocrit was 39. There are no family members present and there is no other history available. On review of her old records here she was on the ventilator back in November here for an asthmatic attack. Allergies/Adverse Reactions: Allergies Allergy/AdvReac Type Severity Reaction Status Date / Time egg Allergy Unknown/Unable Verified 02/17/17 08:28 to obtain milk Allergy Unknown/Unable Verified 02/17/17 08:28 to obtain tomato Allergy Unknown/Unable Verified 02/17/17 08:28 to obtain Home Medications: Home Medications Medication Instructions Recorded Confirmed Type Albuterol Inhaler [Proventil 2 puff INH Q6H PRN 11/15/16 11/15/16 History Inhaler] Levocetirizine Dihydrochloride 5 mg PO DAILY 11/15/16 11/15/16 History [Xyzal] Lisinopril/Hydrochlorothiazide 2 each PO DAILY 11/15/16 11/15/16 History [Lisinopril-Hctz 20-12.5 mg Tab] Pantoprazole Tab [Protonix Tab] 40 mg PO DAILY 11/15/16 11/15/16 History Amoxicillin/Clav Tab [Augmentin 875 mg PO BID #16 tablet 11/20/16 Rx Tab] Doxycycline Hyclate Cap 100 mg PO DAILY #8 capsule 11/20/16 Rx [Vibramycin Cap] amLODIPine [Norvasc] 10 mg PO DAILY #30 tablet 11/20/16 Rx predniSONE TAB [PredniSONE] See Taper PO BID #52 tablet 11/20/16 Rx Review of System - Review of System ROS unobtainable: due to endotracheal tube Medical,Surgical,& Family Hx - Medical History Cardio: History of: Hypertension Endocrine: History of: Thyroid Disorder Rheumatology: History of;: Rheumatoid Arthritis Respiratory: History of: Asthma, COPD Gastrointestinal: History of: Ulcerative Colitis - Surgical History Cardiac Surgeries: Patient Denies: Cardiac Catheterization Abdominal Surgeries: Surgical HX of: Abdominal Surgery, Cholecystectomy, EGD Reproductive Surgeries: Surgical HX of;: Hysterectomy - Social History Smoking Status: Former smoker Frequency of Alcohol Use: Unknown Type of Drug Use: Unknown Exam Vital Signs: Vital Signs Temperature 96.9 F L 02/17/17 08:09 Pulse Rate 92 H 02/17/17 08:09 Respiratory Rate 10 L 02/17/17 08:09 Blood Pressure 185/135 02/17/17 08:09 O2 Sat by Pulse Oximetry 100 02/17/17 08:09 - General Exam limited due to: other (Intubated) General appearance: other ( Intubated but will follow commands.) - Head Head exam: Present: atraumatic - Eye Eye exam: Present: normal appearance - ENT ENT exam: Present: normal exam - Neck Neck exam: Present: normal inspection - Chest Chest inspection: Present: normal inspection - Respiratory Respiratory exam: Present: normal lung sounds bilaterally - Cardiovascular Cardiovascular exam: Present: regular rate, normal rhythm, normal heart sounds. Absent: murmur, rubs - Abdominal Exam Abdominal exam: Present: soft, normal bowel sounds. Absent: distention - Extremities Exam Extremities exam: Present: normal inspection - Back Exam Back exam: Present: normal inspection - Neurological Exam Neurological exam: Present: other (Patient is sedated and intubated). Absent: motor sensory deficit (Patient moves all extremities when asked to.) - Skin Skin exam: Present: warm, dry Disposition Clinical Impression: Respiratory arrest, Asthma with exacerbation Case discussed with: patient's physician Condition: Critical Additional Instructions: Admit to the hospitalist.
[2017-02-17] MEDS ORDERED: methylPREDNISolone SOD SUC 125 MG/2 ML VIAL IV STA (09:14)
[2017-02-17] MEDS ORDERED: LEVOFLOXACIN INJ 500 MG in PREMIX 1 EACH IV STA (09:14)
--- NOTE | 2017-02-17 09:20 | XRay Report ---
XR chest 1V portable Indication: Shortness of breath Comparison: 17 February 2017 Findings: The heart and mediastinum are stable in size and configuration. Endotracheal tube is present with tip between the alfonso and clavicles.. NG tube is been added and overlies the left upper quadrant. The pulmonary vascularity is normal in caliber. No lung infiltrates, effusions, pneumothorax or other abnormality is demonstrated. Impression: NG tube added, appears in good position. Endotracheal tube tip between the alfonso and clavicles. No other significant changes. PROCEDURE INTERPRETED AT [facility] DEPARTMENT OF RADIOLOGY Final Report Signed by: Dr. Tj De La Cruz
[2017-02-17] MEDS ORDERED: LABETALOL 20 MG/4 ML SYRINGE IV ONE (09:26)
[2017-02-17 09:30] LABS: Allen Test Positive
[2017-02-17 09:31] LABS: ABG HCO3 22.8 MMOL/L (20-26); ABG Oxygen Saturation 99.8 % (95-100); ABG PCO2 53.5 MM HG (35-48); ABG PH 7.286 (7.35-7.45); ABG TCO2 23.1 MMOL/L (23-27)
[2017-02-17 09:33] LABS: Basophils # 0.1 10*3/uL (0.0-0.2); Basophils % 0.2 % (0.0-0.8); Hematocrit 39.6 VOL% (35.7-47.0); Hemoglobin 12.1 GM/DL (12.0-16.0); Immature Granulocytes % 2.6 %; Immature Granulocytes Absolute 0.58 #; Lymphocytes # 1.3 10*3/uL (1.4-4.0); Lymphocytes % 5.7 % (21.3-54.2); Mean Corpuscular HGB Conc 30.6 GM/DL (32-36); Mean Corpuscular Hemoglobin 28 PG (27-34); Mean Corpuscular Volume 92.3 FL (87-102); Mean Platelet Volume 12.3 FL (9.6-12.0); Monocytes # 0.8 10*3/uL (0.11-0.8); Monocytes % 3.5 % (1.7-12.7); Platelet Count 242 T/CUMM (130-400); Red Blood Count 4.29 MC/CUMM (3.8-5.5); Red Cell Distribution Width 15.3 % (9.3-17.3); White Blood Count 22.7 T/CUMM (4-12)
[2017-02-17] MEDS ORDERED: LABETALOL 20 MG/4 ML SYRINGE IV STA (09:36)
[2017-02-17 09:40] LABS: PT Patient Result 10.5 SECS; Partial Thromboplastin Time 24.4 SECS (0-40)
[2017-02-17] MEDS ORDERED: methylPREDNISolone SOD SUC 125 MG/2 ML VIAL ONE (09:42)
[2017-02-17] MEDS ORDERED: LEVOFLOXACIN INJ 100 ML IV ONE (09:42)
[2017-02-17 09:52] LABS: Band Neutrophils 1 % (0-10); Lymphocytes 10 % (20-55); Platelet Estimate Adequate; Segmented Neutrophils 87 % (50-85); Total Cells Counted 100
[2017-02-17 09:53] LABS: Giant Platelets Few; Hypochromasia 1+; Microcytosis Slight
[2017-02-17 09:57] LABS: Apearance,Urine CLEAR (Clear); Bilirubin,Urine Negative (Negative); Blood, Urine Negative (Negative); Glucose,Urine (UA) Negative (Negative); Ketones,Urine Negative (Negative); Mucus,Urine Occasional /LPF (Occasional); Nitrite,Urine Negative (Negative); Protein,Urine Negative; RBC,Urine 2 /HPF (0-4); Squamous Epithelial Cell,Urine Occasional /HPF (0-10); Urine Color Straw (Yellow); Urine Specific Gravity 1.013 (1.001-1.035); Urine Urobilinogen < 2.0 EU/DL (0.2-1.0); WBC,Urine 1 /HPF (0-6)
[2017-02-17 10:00] LABS: Barbiturates Screen,Urine Negative (Negative); Benzodiazepines Screen,Urine Positive (Negative); Cannabinoid Screen,Urine Negative (Negative); Opiate Screen,Urine Positive (Negative); Phencyclidine Screen,Urine Negative (Negative)
[2017-02-17 10:02] LABS: Lactic Acid 4.6 MMOL/L (0.4-2.0)
[2017-02-17 10:13] LABS: Alanine Aminotransferase 30 U/L (13-56); Albumin 3.9 G/DL (3.4-5.0); Alkaline Phosphatase 78 U/L (45-117); Aspartate Amino Transferase 23 U/L (0-37); Bilirubin,Total < 0.39 MG/DL (0.2-1.0); Blood Urea Nitrogen 17 MG/DL (7-18); Calcium 8.8 MG/DL (8.5-10.1); Glucose 198 MG/DL (74-106); Magnesium 2.8 MG/DL (1.8-2.4); Osmolality,Calculated 288.3 MOS/KG (273-304); Potassium 4.7 MMOL/L (3.5-5.1); Sodium 141 MMOL/L (136-145); Total Protein 7.2 G/DL (6.4-8.3)
[2017-02-17 10:16] LABS: Troponin I Only 0.657 NG/ML (0.00-0.045)
--- NOTE | 2017-02-17 10:28 | Hospitalist History & Physical ---
<Edin Haynes - Last Filed: 02/17/17 10:11> Assessment and Plan - Time spent with patient Time spent with patient: Less than 30 minutes (1) Acute respiratory failure with hypercapnia Status: Resolved Assessment and plan: 61 year old female transferred from [facility] for further evaluation of SOB. Patient intubated. CXR unremarkable and unable to determine a source of infection. Follow with CT chest PE study. ABGs show respiratory acidosis. Breathing treatment. Empiric coverage with broad-spectrum antibiotics. Consult pulmonology for vent management. Hopefully, the patient can be weaned off the vent and switch to BiPAP soon. Current Visit: No (2) Sepsis Status: Acute Assessment and plan: Lactic acid 4.6. WBC 22.7. Suspected pneumonia. Will repeat Lactic acid in 3 hours. Blood cultures have been ordered. Initiate sepsis protocol as indicated. Current Visit: Yes (3) Hypertension Status: Chronic Assessment and plan: Patient initially hypertensive on arrival. She is now more hypotensive. Will hold all antihypertensives. Continue to monitor. Add pressors as needed. Current Visit: No Qualifiers: Hypertension type: essential hypertension Qualified Code(s): I10 - Essential (primary) hypertension (4) Leukocytosis Status: Acute Assessment and plan: WBC 22.7. Likely secondary to pneumonia. Will order follow-up CT of chest to confirm. Blood cultures have been drawn. Start Zosyn for empiric coverage while awaiting C&s report. Current Visit: No History of Present Illness Chief complaint: vent managment History of present illness: Ms. Suárez is a 61 year old female with a past medical history significant for hypertension, reactive airway disease who presents as a transfer from [facility] for further evaluation of SOB. Per ER report, the patient was found to be in respiratory failure and was [place]ub[place] [facility] [place] transferred to [facility] to further evaluation. On arrival at [facility], the patient was intubated yet responding to verbal commands, moving her extremities at will. She was started on propofol, levaquin and given breathing treatments in the ED. No family members are present and no other history is readily available for this patient. Lab work shows: WBC 22.7, Na 141 , potassium 4.7, chloride 106, At 30, BUN 17, creatinine 1.00, serum glucose 198. Lactic acid 4.6, magnesium 2.8. ABGs show pH 7.286, PCO2 53.5, PO2 537, bicarb 22.8. This case has been discussed with both Dr. Potts, ER physician, and Dr. Guajardo, admitting physician, the patient will be admitted to the ICU for further evaluation and treatment. She is a full code. Home medications will be reviewed and reconciled once available. Home Medications Medication Instructions Recorded Confirmed Type RX: Albuterol Inhaler [Proventil 2 puff INH Q6H PRN 11/15/16 02/17/17 History Inhaler] RX: Levocetirizine Dihydrochloride 5 mg PO DAILY 11/15/16 02/17/17 History [Xyzal] RX: Lisinopril/Hydrochlorothiazide 2 each PO DAILY 11/15/16 02/17/17 History [Lisinopril-Hctz 20-12.5 mg Tab] RX: Pantoprazole Tab [Protonix Tab] 40 mg PO DAILY 11/15/16 11/15/16 History RX: Amoxicillin/Clav Tab 875 mg PO BID #16 tablet 11/20/16 Rx [Augmentin Tab] RX: Doxycycline Hyclate Cap 100 mg PO DAILY #8 capsule 11/20/16 Rx [Vibramycin Cap] RX: amLODIPine [Norvasc] 10 mg PO DAILY #30 tablet 11/20/16 Rx RX: predniSONE TAB [PredniSONE] See Taper PO BID #52 tablet 11/20/16 02/17/17 Rx Allergies Allergy/AdvReac Type Severity Reaction Status Date / Time egg Allergy Unknown/Unable Verified 02/17/17 08:28 to obtain milk Allergy Unknown/Unable Verified 02/17/17 08:28 to obtain tomato Allergy Unknown/Unable Verified 02/17/17 08:28 to obtain Medical,Surgical,& Family Hx - Medical History Cardio: History of: Hypertension Endocrine: History of: Thyroid Disorder Rheumatology: History of;: Rheumatoid Arthritis Respiratory: History of: Asthma, COPD Gastrointestinal: History of: Ulcerative Colitis - Surgical History Cardiac Surgeries: Patient Denies: Cardiac Catheterization Abdominal Surgeries: Surgical HX of: Abdominal Surgery, Cholecystectomy, EGD Reproductive Surgeries: Surgical HX of;: Hysterectomy - Social History Smoking Status: Former smoker Frequency of Alcohol Use: Unknown Type of Drug Use: Unknown ROS unobtainable: due to endotracheal tube Exam - Constitutional Vitals: Period Temp Pulse Resp BP Sys/Sparks Pulse Ox Last 24 Hr 96.8 F-96.9 F 92-92 10-12 164-185/114-135 100-100 General appearance: morbidly obese, other (intubated) - Head Head exam: Present: normal inspection, normocephalic, atraumatic - Eye Pupils: Present: dilated, fixed - ENT ENT exam: Present: normal exam, normal external ear exam - Neck Neck exam: Absent: lymphadenopathy, tenderness, thyromegaly - Respiratory Respiratory exam: Present: decreased breath sounds, other (intubated). Absent: rhonchi - Cardiovascular Cardiovascular exam: Present: bradycardia. Absent: carotid bruit - GI/Abdominal GI/Abdominal exam: Present: hypoactive bowel sounds. Absent: mass - Extremities Exam Extremities exam: Present: normal inspection, normal capillary refill, edema - Neurological Exam Neurological exam: Present: other (unable to assess due to intubation) - Psychiatric Psychiatric exam: Present: other (unable to assess due to intubation) - Skin Skin exam: Present: normal color, warm, dry. Absent: abrasion, erythema, rash Results - Labs CBC & BMP: 02/17/17 09:11 Lab Results: I have reviewed the past 24 hour labs - Diagnostic Findings Procedure: Chest x-ray: image reviewed by me, report reviewed by me Sepsis - Sepsis Classification of Sepsis: Sepsis - Physical Exam Respiratory exam: decreased breath sounds Capillary Refill: Less Than 3 Seconds Peripheral pulses: Radial (L): 2+, Radial (R): 2+, Dorsalis Pedis (L) PM: 2+, Dorsalis Pedis (R) PM: 2+, Posterior Tibialis (L): 2+, Posterior Tibialis (R): 2 + Cardiovascular exam: bradycardia Skin exam: normal color <Brandon Guajardo - Last Filed: 02/17/17 16:31> History of Present Illness History of present illness: Patient seen and examined independently of LUIS Haynes, agree with history, assessment and plan as documented. Patient admitted with acute respiratory failure secondary to asthma exacerbation. Patient also with leukocytosis and elevated lactic acid. No clear source of infection. CXR and CT chest PE protocol without signs of infection. Patient is bradycardic with elevated troponin. This could be a stress response. Will consult cardiology to evaluate. Consult Pulmonary to assist with vent management and assistance with asthma exacerbation. Steroids, duonebs, IV antibiotics. Exam - Constitutional Vitals: Period Temp Pulse Resp BP Sys/Sparks Pulse Ox Last 24 Hr 96.8 F-96.9 F 46-92 10-15 102-185/72-135 100-100 Results - Labs CBC & BMP: 02/17/17 09:11 02/17/17 09:11
[2017-02-17 10:42] LABS: Alanine Aminotransferase 31 U/L (13-56); Alkaline Phosphatase 77 U/L (45-117); Aspartate Amino Transferase 26 U/L (0-37); Bilirubin,Direct < 0.050 MG/DL (0.0-0.20); Bilirubin,Indirect 0.3 MG/DL (0.0-1.0); Bilirubin,Total < 0.39 MG/DL (0.2-1.0); Total Protein 7.5 G/DL (6.4-8.3)
--- NOTE | 2017-02-17 12:12 | CT Report ---
Exam: CT head without intravenous contrast Clinical History: 61 years Female altered mental status, confusion Technique: Axial computed tomography images of the head/brain without intravenous contrast Comparison: No relevant comparisons Findings: Brain: Unremarkable. Cuellar-white matter distinction maintained. No mass effect. No intra or extra-axial hemorrhage. Ventricles: Unremarkable. No ventriculomegaly. Bones/joints: Calvarium is intact Soft tissues: Unremarkable Sinuses: No active paranasal sinus process Mastoid air cells: Unremarkable visualized. Impression: 1. No acute intracranial abnormality PROCEDURE INTERPRETED AT [facility] DEPARTMENT OF RADIOLOGY Final Report Signed by: Giuseppe Cuellar
--- NOTE | 2017-02-17 12:15 | CT Report ---
Exam: CT angiography chest without and with intravenous contrast Exam date: 02/17/2017 10:23 AM Clinical History: 61 years,Female, progressing dyspnea, chest pain Technique: Axial computed tomographic angiography images of the chest without and with intravenous contrast using pulmonary embolism protocol. The CT exam was performed using one or more of the following dose reduction techniques: Automated exposure control, adjustment of the mA and/or kV according to patient size, or use of iterative reconstruction technique. Contrast: 100 mL of Omnipaque 350 administered intravenously Comparison: No relevant comparison studies available Findings: Pulmonary arteries: No vascular intraluminal filling defects to suggest pulmonary embolism Aorta: No dissection or thoracic aortic aneurysm. Lungs: Well aerated. No consolidation. No mass. Pleural spaces: No effusion. No pneumothorax Heart: Heart size is normal Mediastinum: Endotracheal tube and esophagogastric tubes in satisfactory position. Bones/joints: Intact. No acute fracture. No dislocation. Scoliotic curvature of the thoracolumbar spine is noted. Soft tissues: Unremarkable. Lymph nodes: No enlarged lymph nodes Impression: 1. No evidence for pulmonary embolism 2. No acute intrathoracic abnormalities. PROCEDURE INTERPRETED AT [facility] DEPARTMENT OF RADIOLOGY Final Report Signed by: Giuseppe Cuellar
--- NOTE | 2017-02-17 12:56 | Pulmonology Consult Note ---
Assessment and Plan (1) Acute respiratory failure Status: Acute Assessment and plan: ABGs look okay on the ventilator. She is still fairly tight but her peak airway pressures were only around 24. Hopefully can wean her over the next day or so. Current Visit: Yes (2) Asthma with exacerbation Status: Acute Assessment and plan: Intravenous corticosteroids, nebulized bronchodilators, empiric antibiotics. She will clearly need a controller medication such as Advair or Symbicort or Breo prior to discharge Current Visit: Yes (3) Status asthmaticus Status: Resolved Assessment and plan: Treating with steroids and bronchodilators. Current Visit: No History of Present Illness Chief complaint: Respiratory failure History of present illness: Ms. Suárez is a 61 year old female who was transferred from [place] after emergency intubation earlier today. She has a history of asthma. She was hospitalized to 3 months ago with an acute exacerbation requiring mechanical ventilation. She was home on her regular medications until she had an acute exacerbation 2 days ago. She was treated through the emergency room in [place] but got worse this morning. An ambulance was called and she was intubated in the emergency room in [place]. She has been tight in her chest and coughing more. I do not think she has had any fever. She has a remote history of smoking. Reviewing her medications I do not see any controller medications listed. Family relates that she does do a lot of vomiting. Home Medications Medication Instructions Recorded Confirmed Type Albuterol Inhaler [Proventil 2 puff INH Q6H PRN 11/15/16 11/15/16 History Inhaler] Levocetirizine Dihydrochloride 5 mg PO DAILY 11/15/16 11/15/16 History [Xyzal] Lisinopril/Hydrochlorothiazide 2 each PO DAILY 11/15/16 11/15/16 History [Lisinopril-Hctz 20-12.5 mg Tab] Pantoprazole Tab [Protonix Tab] 40 mg PO DAILY 11/15/16 11/15/16 History Amoxicillin/Clav Tab [Augmentin 875 mg PO BID #16 tablet 11/20/16 Rx Tab] Doxycycline Hyclate Cap 100 mg PO DAILY #8 capsule 11/20/16 Rx [Vibramycin Cap] amLODIPine [Norvasc] 10 mg PO DAILY #30 tablet 11/20/16 Rx predniSONE TAB [PredniSONE] See Taper PO BID #52 tablet 11/20/16 Rx Allergies Allergy/AdvReac Type Severity Reaction Status Date / Time egg Allergy Unknown/Unable Verified 02/17/17 08:28 to obtain milk Allergy Unknown/Unable Verified 02/17/17 08:28 to obtain tomato Allergy Unknown/Unable Verified 02/17/17 08:28 to obtain ROS unobtainable: due to endotracheal tube Exam (Pulmonay) H&P - Constitutional Vitals: Period Temp Pulse Resp BP Sys/Sparks Pulse Ox Last 24 Hr 96.8 F-96.9 F 46-92 10-15 102-185/72-135 100-100 Exam: Vital signs normal except for pulse of about 50. She is on mechanical ventilation and somewhat sedated but she does respond. Pupils react to light. Orotracheal tube in place. Neck is supple no bruits. Chest reveals some expiratory wheezes more on the right than the left. She is moderately tight. Heart slow rate normal rhythm. No murmurs. Abdomen soft nontender no masses. Normal bowel sounds. Extremities no clubbing cyanosis or edema. Medical,Surgical,& Family Hx - Medical History Cardio: History of: Hypertension Endocrine: History of: Thyroid Disorder Rheumatology: History of;: Rheumatoid Arthritis Respiratory: History of: Asthma, COPD Gastrointestinal: History of: Ulcerative Colitis - Surgical History Cardiac Surgeries: Patient Denies: Cardiac Catheterization Abdominal Surgeries: Surgical HX of: Abdominal Surgery, Cholecystectomy, EGD Reproductive Surgeries: Surgical HX of;: Hysterectomy - Social History Smoking Status: Former smoker Frequency of Alcohol Use: Unknown Type of Drug Use: Unknown Results - Labs CBC & BMP: 02/17/17 09:11 02/17/17 09:11 Lab Results: I have reviewed the past 24 hour labs - Diagnostic Findings Procedure: Chest x-ray: image reviewed by me (ET tube good position. Slightly increased interstitial markings in the right lung.)
[2017-02-17] MEDS ORDERED: ALBUTEROL 1.25 MG/3 ML NEB RESP TX PRN (12:59)
[2017-02-17] MEDS: PIPERACILLIN/TAZOBACTAM 3,375 MG in SODIUM CHLORIDE 0.9% 100 ML IV SCH ×2 (13:00→20:32)
--- NOTE | 2017-02-17 13:40 | EKG Report ---
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
[2017-02-17] MEDS: methylPREDNISolone SOD SUC 125 MG/2 ML VIAL IV SCH ×2 (13:58→20:09)
[2017-02-17 15:31] LABS: ABG Base Excess 0.9 MMOL/L (-2.5-2.5); ABG HCO3 25.2 MMOL/L (20-26); ABG Oxygen Saturation 99.2 % (95-100); ABG PCO2 47.8 MM HG (35-48); ABG PH 7.358 (7.35-7.45); ABG TCO2 24.2 MMOL/L (23-27); Allen Test Positive; Pt O2 Delivery Device Ventilator
--- NOTE | 2017-02-17 16:12 | Cardiology Consult Note ---
Assessment and Plan - Time spent with patient Time spent with patient: Greater than 30 minutes (1) Acute respiratory failure with hypercapnia Status: Resolved Assessment and plan: SEE PLAN OF CARE LISTED BELOW Current Visit: No (2) Hypertension Status: Chronic Assessment and plan: SEE PLAN OF CARE LISTED BELOW Current Visit: No Qualifiers: Qualified Code(s): I10 - Essential (primary) hypertension (3) Leukocytosis Status: Acute Assessment and plan: SEE PLAN OF CARE LISTED BELOW Current Visit: No History of Present Illness - Data of Consult Patient: new to practice Consult date: 02/17/17 Requesting Physician: Brandon Guajardo - Consult Narrative Reason for consult: respiratory arrest History of present illness: 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 SANTANA ([facility]) Patient is being seen in the ICU. She is intubated but follows commands appropriately. Ms. Suárez, 61 BF, with risk factors significant for: hypertension, obesity and sedentary lifestyle. History of reactive airway disease. Patient was received in transfer from [facility] February 21, 2017 for further evaluation of shortness of breath. Patient was found to be in respiratory failure and intubated on arrival at [facility]. She was brought to our facility and has been housed in our ICU. She does follow verbal commands and can communicate by shaking her head and using her extremities. She has undergone CT chest PE protocol which revealed no evidence of pulmonary emboli. CT head unremarkable as well. Leukocytosis (WBC is 22.7) noted and she is being treated for sepsis related to possible community-acquired pneumonia, asthma exacerbation. Cardiology was consulted for sinus bradycardia, elevated troponin (0.657). Of note, it appears that patient's heart rate was 80s and 90s prior to receiving IV Labetalol 20 mg. Since that time, she has had a bradycardic rhythm in the 40s and 50s with abnormal EKG. prior echocardiogram November 2016 revealed the following: EF 70%, 2-3+ concentric LVH, RVSP 35 mmHg + RAP. Patient is able to follow commands. She denies chest pain but acknowledges pain in the mid epigastric and left upper abdominal quadrant to palpation. At this time, will continue to follow along cycling her cardiac biomarkers. Troponin may be elevated due to her recent respiratory distress and acute illness/suspected sepsis. 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 I have reviewed the chart sent from [facility]. I cannot locate where she was given an Aspirin or Lovenox therefore I will administer both. Has a recent echocardiogram no need to repeat at this point. Continue to cycle her cardiac biomarkers and EKG. Make sure she is taking PPI. Once patient comorbidities have improved we can further discuss additional cardiac workup. She does not appear to be having acute KS. Will further discuss with Dr. Santana and await additional recommendations. ASSESSMENT/PLAN: 1. RESPIRATORY FAILURE - possible related to asthma exacerbation. Being treated with antibiotics for possible sepsis. 2. ELEVATED TROPONIN - continue to cycle CIEs x 3 and EKG. Adding ECASA and Lovenox. Avoiding betablocker at this time due to bradycardia. When able, may need J LUIS. 3. SINUS BRADYCARDIA - seems to have occurred after receiving IV Labetolol. Hopefully, this will resolve soon. She does have abnormal EKG and we will continue to follow 4. EPIGASTRIC PAIN - adding PPI. 5. 2-3+ CONCENTRIC LVH - good blood pressure control recommended, may need sleep study outpatient. Will further discuss with her when she is extubated and can communicate more effectively. CC: Brandon Guajardo MD - Home Medications and Allergies Home Medications: Home Medications Medication Instructions Recorded Confirmed Type Albuterol Inhaler [Proventil 2 puff INH Q6H PRN 11/15/16 02/17/17 History Inhaler] Levocetirizine Dihydrochloride 5 mg PO DAILY 11/15/16 02/17/17 History [Xyzal] Lisinopril/Hydrochlorothiazide 2 each PO DAILY 11/15/16 02/17/17 History [Lisinopril-Hctz 20-12.5 mg Tab] Pantoprazole Tab [Protonix Tab] 40 mg PO DAILY 11/15/16 11/15/16 History Amoxicillin/Clav Tab [Augmentin 875 mg PO BID #16 tablet 11/20/16 Rx Tab] Doxycycline Hyclate Cap 100 mg PO DAILY #8 capsule 11/20/16 Rx [Vibramycin Cap] amLODIPine [Norvasc] 10 mg PO DAILY #30 tablet 11/20/16 Rx predniSONE TAB [PredniSONE] See Taper PO BID #52 tablet 11/20/16 02/17/17 Rx Allergies/Adverse Reactions: Allergies Allergy/AdvReac Type Severity Reaction Status Date / Time egg Allergy Unknown/Unable Verified 02/17/17 08:28 to obtain milk Allergy Unknown/Unable Verified 02/17/17 08:28 to obtain tomato Allergy Unknown/Unable Verified 02/17/17 08:28 to obtain ROS unobtainable: due to endotracheal tube Medical,Surgical,& Family Hx - Medical History Cardio: History of: Hypertension No history of: Cardiac Dysrhythmia, CAD Endocrine: History of: Thyroid Disorder Rheumatology: History of;: Rheumatoid Arthritis Respiratory: History of: Asthma, COPD Gastrointestinal: History of: Ulcerative Colitis - Surgical History Cardiac Surgeries: Patient Denies: Cardiac Catheterization Abdominal Surgeries: Surgical HX of: Abdominal Surgery, Cholecystectomy, EGD Reproductive Surgeries: Surgical HX of;: Hysterectomy - Social History Smoking Status: Former smoker Frequency of Alcohol Use: Unknown Type of Drug Use: Unknown Physical Examination Vital Signs Temp Pulse Resp BP Pulse Ox 96.9 F L 92 H 10 L 185/135 100 02/17/17 08:09 02/17/17 08:09 02/17/17 08:09 02/17/17 08:09 02/17/17 08:09 Exam: General: [Appears comfortable. Follows commands appropriately. ] HEENT: [Intubated. PERRL, normocephalic, atraumatic. Mucous membranes moist. No jaundice noted. Conjunctiva moist and clear, sclerae anicteric] Neck: No JVD/HJR, no thyromegaly or lymphadenopathy noted. No carotid bruit appreciated Cardiac: [Slow rate and rhythm. No obvious murmur rub or gallop is appreciated. Lungs: [Clear to auscultation without accessory muscle use to assist the respiratory pattern.] Symmetrical chest wall movements noted. Abdomen: Soft, bowel sounds normoactive. Tenderness in the epigastric and left upper quadrant abdominal area to light palpation No abdominal bruit or thrill noted. No masses noted. Musculoskeletal: No fluid collection. Decreased range of motion is noted. Extremities: No clubbing, cyanosis noted. [ No edema noted.] Upper extremity pulses 2+. Lower extremity pulses 2+. Capillary refill less than 3 seconds. Skin: No unusual lesions or rashes. No skin breakdown appreciated. Neuro: Awake, alert and oriented 3. Moves all extremities well without hemiparesis or paralysis. No essential tremor is appreciated. Result/EKG - Labs CBC & BMP: 02/17/17 09:11 02/17/17 09:11 Labs: Laboratory Results - last 24 hr 02/17/17 02/17/17 02/17/17 09:11 09:11 09:11 WBC 22.7 H RBC 4.29 Hgb 12.1 Hct 39.6 MCV 92.3 MCH 28 MCHC 30.6 L RDW 15.3 Plt Count 242 MPV 12.3 H Neut % (Auto) 88.0 H Lymph % (Auto) 5.7 L [place] % (Auto) 3.5 Eos % (Auto) 0.0 Baso % (Auto) 0.2 Neut # (Auto) 20.0 H Lymph # (Auto) 1.3 L [place] # (Auto) 0.8 Eos # (Auto) 0.0 Baso # (Auto) 0.1 Total Counted 100 Immature Gran % 2.6 Nucleated RBC % 0.0 Immature Gran # 0.58 Segmented Neutrophils 87 H Band Neutrophils 1 Lymphocytes 10 L Monocytes 2 Nucleated RBCs # 0.00 Platelet Estimate Adequate Giant Platelets Few Immature Plt Fraction 0.0 Hypochromasia 1+ Microcytosis Slight INR 1.0 PT Patient/Control Mix 10.5 Circ Anticoag PTT 24.4 ABG pH ABG pCO2 ABG pO2 ABG HCO3 ABG Total CO2 ABG O2 Saturation ABG Base Excess FiO2 Sodium 141 Potassium 4.7 Chloride 106 Carbon Dioxide 30 Anion Gap 9.7 BUN 17 Creatinine 1.00 GFR Calculation 96 BUN/Creatinine Ratio 17.00 Glucose 198 H Hemoglobin A1c Calculated Osmolality 288.3 Lactic Acid 4.6 H Calcium 8.8 Magnesium 2.8 H Total Bilirubin < 0.39 Direct Bilirubin Indirect Bilirubin AST 23 ALT 30 Alkaline Phosphatase 78 Total Creatine Kinase CK-MB (CK-2) Troponin I B-Natriuretic Peptide Total Protein 7.2 Albumin 3.9 Globulin 3.3 Albumin/Globulin Ratio 1.1 Free T4 TSH 3rd Generation Urine Color Urine Appearance Urine pH Ur Specific Bartlett Urine Protein Urine Glucose (UA) Urine Ketones Urine Blood Urine Nitrate Urine Bilirubin Urine Urobilinogen Urine Leukocytes Urine RBC Urine WBC Ur Squamous Epith Cells Urine Mucus Ur Culture Indicated? Urine Opiates Screen Ur Barbiturates Screen Ur Phencyclidine Scrn U Amphetamine/Methamph U Benzodiazepines Scrn U Cocaine Metab Screen U Cannabinoids Screen 02/17/17 02/17/17 02/17/17 09:11 09:11 09:11 WBC RBC Hgb Hct MCV MCH MCHC RDW Plt Count MPV Neut % (Auto) Lymph % (Auto) [place]eman % (Auto) Eos % (Auto) Baso % (Auto) Neut # (Auto) Lymph # (Auto) [place] # (Auto) Eos # (Auto) Baso # (Auto) Total Counted Immature Gran % Nucleated RBC % Immature Gran # Segmented Neutrophils Band Neutrophils Lymphocytes Monocytes Nucleated RBCs # Platelet Estimate Giant Platelets Immature Plt Fraction Hypochromasia Microcytosis INR PT Patient/Control Mix Circ Anticoag PTT ABG pH ABG pCO2 ABG pO2 ABG HCO3 ABG Total CO2 ABG O2 Saturation ABG Base Excess FiO2 Sodium Potassium Chloride Carbon Dioxide Anion Gap BUN Creatinine GFR Calculation BUN/Creatinine Ratio Glucose Hemoglobin A1c Calculated Osmolality Lactic Acid Calcium Magnesium Total Bilirubin Direct Bilirubin Indirect Bilirubin AST ALT Alkaline Phosphatase Total Creatine Kinase 129 CK-MB (CK-2) 4.1 H Troponin I 0.657 H B-Natriuretic Peptide 113 H Total Protein Albumin Globulin Albumin/Globulin Ratio Free T4 TSH 3rd Generation Urine Color Straw Urine Appearance Clear Urine pH 5.0 Ur Specific [place]lett 1.013 Urine Protein Negative Urine Glucose (UA) Negative Urine Ketones Negative Urine Blood Negative Urine Nitrate Negative Urine Bilirubin Negative Urine Urobilinogen < 2.0 H Urine Leukocytes Negative Urine RBC 2 Urine WBC 1 Ur Squamous Epith Cells Occasional Urine Mucus Occasional Ur Culture Indicated? Not indicated Urine Opiates Screen Ur Barbiturates Screen Ur Phencyclidine Scrn U Amphetamine/Methamph U Benzodiazepines Scrn U Cocaine Metab Screen U Cannabinoids Screen 02/17/17 02/17/17 02/17/17 09:11 09:11 09:11 WBC RBC Hgb Hct MCV MCH MCHC RDW Plt Count MPV Neut % (Auto) Lymph % (Auto) [place] % (Auto) Eos % (Auto) Baso % (Auto) Neut # (Auto) Lymph # (Auto) [place] # (Auto) Eos # (Auto) Baso # (Auto) Total Counted Immature Gran % Nucleated RBC % Immature Gran # Segmented Neutrophils Band Neutrophils Lymphocytes Monocytes Nucleated RBCs # Platelet Estimate Giant Platelets Immature Plt Fraction Hypochromasia Microcytosis INR PT Patient/Control Mix Circ Anticoag PTT ABG pH ABG pCO2 ABG pO2 ABG HCO3 ABG Total CO2 ABG O2 Saturation ABG Base Excess FiO2 Sodium Potassium Chloride Carbon Dioxide Anion Gap BUN Creatinine GFR Calculation BUN/Creatinine Ratio Glucose Hemoglobin A1c Calculated Osmolality Lactic Acid Calcium Magnesium Total Bilirubin Direct Bilirubin Indirect Bilirubin AST ALT Alkaline Phosphatase Total Creatine Kinase CK-MB (CK-2) Troponin I B-Natriuretic Peptide Total Protein Albumin Globulin Albumin/Globulin Ratio Free T4 0.86 TSH 3rd Generation 2.680 Urine Color Urine Appearance Urine pH Ur Specific [place] Urine Protein Urine Glucose (UA) Urine Ketones Urine Blood Urine Nitrate Urine Bilirubin Urine Urobilinogen Urine Leukocytes Urine RBC Urine WBC Ur Squamous Epith Cells Urine Mucus Ur Culture Indicated? Urine Opiates Screen Positive H Ur Barbiturates Screen Negative Ur Phencyclidine Scrn Negative U Amphetamine/Methamph Negative U Benzodiazepines Scrn Positive H U Cocaine Metab Screen Negative U Cannabinoids Screen Negative 02/17/17 02/17/17 02/17/17 09:14 09:24 10:46 WBC RBC Hgb Hct MCV MCH MCHC RDW Plt Count MPV Neut % (Auto) Lymph % (Auto) [place] % (Auto) Eos % (Auto) Baso % (Auto) Neut # (Auto) Lymph # (Auto) [place] # (Auto) Eos # (Auto) Baso # (Auto) Total Counted Immature Gran % Nucleated RBC % Immature Gran # Segmented Neutrophils Band Neutrophils Lymphocytes Monocytes Nucleated RBCs # Platelet Estimate Giant Platelets Immature Plt Fraction Hypochromasia Microcytosis INR PT Patient/Control Mix Circ Anticoag PTT ABG pH 7.286 L ABG pCO2 53.5 H ABG pO2 537.0 H ABG HCO3 22.8 ABG Total CO2 23.1 ABG O2 Saturation 99.8 ABG Base Excess -2.0 FiO2 100.00 Sodium Potassium Chloride Carbon Dioxide Anion Gap BUN Creatinine GFR Calculation BUN/Creatinine Ratio Glucose Hemoglobin A1c 6.5 H Calculated Osmolality Lactic Acid Calcium Magnesium Total Bilirubin < 0.39 Direct Bilirubin < 0.050 Indirect Bilirubin 0.3 AST 26 ALT 31 Alkaline Phosphatase 77 Total Creatine Kinase CK-MB (CK-2) Troponin I B-Natriuretic Peptide Total Protein 7.5 Albumin 4.0 Globulin Albumin/Globulin Ratio Free T4 TSH 3rd Generation Urine Color Urine Appearance Urine pH Ur Specific [place] Urine Protein Urine Glucose (UA) Urine Ketones Urine Blood Urine Nitrate Urine Bilirubin Urine Urobilinogen Urine Leukocytes Urine RBC Urine WBC Ur Squamous Epith Cells Urine Mucus Ur Culture Indicated? Urine Opiates Screen Ur Barbiturates Screen Ur Phencyclidine Scrn U Amphetamine/Methamph U Benzodiazepines Scrn U Cocaine Metab Screen U Cannabinoids Screen 02/17/17 15:20 WBC RBC Hgb Hct MCV MCH MCHC RDW Plt Count MPV Neut % (Auto) Lymph % (Auto) [place] % (Auto) Eos % (Auto) Baso % (Auto) Neut # (Auto) Lymph # (Auto) [place] # (Auto) Eos # (Auto) Baso # (Auto) Total Counted Immature Gran % Nucleated RBC % Immature Gran # Segmented Neutrophils Band Neutrophils Lymphocytes Monocytes Nucleated RBCs # Platelet Estimate Giant Platelets Immature Plt Fraction Hypochromasia Microcytosis INR PT Patient/Control Mix Circ Anticoag PTT ABG pH 7.358 ABG pCO2 47.8 ABG pO2 210.0 H ABG HCO3 25.2 ABG Total CO2 24.2 ABG O2 Saturation 99.2 ABG Base Excess 0.9 FiO2 50.00 Sodium Potassium Chloride Carbon Dioxide Anion Gap BUN Creatinine GFR Calculation BUN/Creatinine Ratio Glucose Hemoglobin A1c Calculated Osmolality Lactic Acid Calcium Magnesium Total Bilirubin Direct Bilirubin Indirect Bilirubin AST ALT Alkaline Phosphatase Total Creatine Kinase CK-MB (CK-2) Troponin I B-Natriuretic Peptide Total Protein Albumin Globulin Albumin/Globulin Ratio Free T4 TSH 3rd Generation Urine Color Urine Appearance Urine pH Ur Specific [place] Urine Protein Urine Glucose (UA) Urine Ketones Urine Blood Urine Nitrate Urine Bilirubin Urine Urobilinogen Urine Leukocytes Urine RBC Urine WBC Ur Squamous Epith Cells Urine Mucus Ur Culture Indicated? Urine Opiates Screen Ur Barbiturates Screen Ur Phencyclidine Scrn U Amphetamine/Methamph U Benzodiazepines Scrn U Cocaine Metab Screen U Cannabinoids Screen - Diagnostic Findings Procedure: Chest x-ray: report reviewed by me, CT - chest: report reviewed by me , CT: report reviewed by me - EKG EKG results: interpreted by me EKG shows: bradycardia
[2017-02-17] MEDS ORDERED: DEXTROSE 50% 25 GM/50 ML SYRINGE IV PRN (16:27)
[2017-02-17] MEDS ORDERED: GLUCAGON 1 MG VIAL IM PRN (16:27)
[2017-02-17] MEDS ORDERED: ENOXAPARIN 120 MG/0.8 ML SYRINGE SUBCUT ONE (16:36)
[2017-02-17] MEDS: ASPIRIN 325 MG TABLET PO SCH (17:16)
[2017-02-17 17:50] LABS: CKMB % 4.2 %
[2017-02-17 17:56] LABS: Troponin I Only 1.95 NG/ML (0.00-0.045)
[2017-02-17] MEDS: INSULIN REGULAR 100 UNIT/ML SUBCUT SCH (19:18)
[2017-02-18] MEDS: INSULIN REGULAR 100 UNIT/ML SUBCUT SCH ×4 (00:37→18:15)
[2017-02-18] MEDS: methylPREDNISolone SOD SUC 125 MG/2 ML VIAL IV SCH ×4 (00:40→18:49)
[2017-02-18 01:18] LABS: Calcium 8.7 MG/DL (8.5-10.1); Magnesium 2.6 MG/DL (1.8-2.4); Osmolality,Calculated 288.1 MOS/KG (273-304); Potassium 4.3 MMOL/L (3.5-5.1); Risk Ratio 3.81; VLDL CHOLESTEROL 28.6 MG/DL
[2017-02-18 01:19] LABS: CKMB % 4.5 %
[2017-02-18 01:21] LABS: Troponin I Only 1.92 NG/ML (0.00-0.045)
[2017-02-18 01:22] LABS: Basophils % 0.1 % (0.0-0.8); Hematocrit 34.5 VOL% (35.7-47.0); Hemoglobin 11.2 GM/DL (12.0-16.0); Immature Granulocytes Absolute 0.15 #; Lymphocytes # 1.3 10*3/uL (1.4-4.0); Lymphocytes % 8.5 % (21.3-54.2); Mean Corpuscular HGB Conc 32.5 GM/DL (32-36); Mean Corpuscular Hemoglobin 29 PG (27-34); Mean Corpuscular Volume 88.5 FL (87-102); Mean Platelet Volume 13.2 FL (9.6-12.0); Monocytes # 0.3 10*3/uL (0.11-0.8); Monocytes % 1.9 % (1.7-12.7); Neutrophils # 13.7 10*3/uL (1.4-7.4); Neutrophils % 88.5 % (38.7-73.9); Platelet Count 209 T/CUMM (130-400); Red Cell Distribution Width 15.5 % (9.3-17.3); White Blood Count 15.5 T/CUMM (4-12)
[2017-02-18 02:24] LABS: Calcium 8.7 MG/DL (8.5-10.1); Potassium 3.8 MMOL/L (3.5-5.1)
[2017-02-18] MEDS: PROPOFOL 1,000 MG/100 ML BOTTLE IV SCH ×5 (02:50→21:58)
[2017-02-18] MEDS: PIPERACILLIN/TAZOBACTAM 3,375 MG in SODIUM CHLORIDE 0.9% 100 ML IV SCH ×3 (02:52→18:50)
[2017-02-18 04:49] LABS: ABG Base Excess 3.7 MMOL/L (-2.5-2.5); ABG HCO3 29.1 MMOL/L (20-26); ABG PCO2 47.9 MM HG (35-48); ABG PH 7.402 (7.35-7.45); ABG PO2 184.6 MM HG (80-95); ABG TCO2 30.6 MMOL/L (23-27)
[2017-02-18] MEDS ORDERED: AMINOPHYLLINE 250 MG in SODIUM CHLORIDE 0.9% 100 ML IV ONE (06:53)
--- NOTE | 2017-02-18 06:57 | Pulmonology Progress Note ---
Pulmonary - PN: Subj Interval history: This 61-year-old black female has severe asthma with acute exacerbation, status asthmaticus, and respiratory failure. She is responsive on the ventilator. Still having some wheezing. Her airway pressures are little higher today. PCO2 is elevated at 47 despite mechanical ventilation. Normal pH at that level. Will add Aminophyllin. Will start CPAP today. Exam (Progress Note) - Constitutional Vitals: Period Temp Pulse Resp BP Sys/[place]par[place] Pulse Ox Last 24 Hr 96.8 F-98 F 46-92 10-15 102-185/54-135 99-100 Exam: Vital signs normal. Pupils react to light. Orotracheal tube in place. Neck supple. Chest reveals some high-pitched expiratory wheezes on the right side more than the left. Heart normal rate and rhythm no murmurs. Abdomen soft nontender no masses. Remedies no clubbing cyanosis or edema. Calves nontender. Results - Labs CBC & BMP: 02/18/17 00:24 02/18/17 00:24 Lab Results: I have reviewed the past 24 hour labs - Diagnostic Findings Procedure: Chest x-ray: image reviewed by me (Slightly hazy at left base otherwise no change from yesterday. ET tube good position.) Assessment and Plan (1) Acute respiratory failure Status: Acute Assessment and plan: ABGs look okay on the ventilator. She is still fairly tight but her peak airway pressures were only around 24. Hopefully can wean her over the next day or so. 02/18/2017 PCO2 is a little elevated. Easily oxygenated. Airway pressures in the low 30s. Adding Aminophyllin. Current Visit: Yes (2) Asthma with exacerbation Status: Acute Assessment and plan: Intravenous corticosteroids, nebulized bronchodilators, empiric antibiotics. She will clearly need a controller medication such as Advair or Symbicort or Breo prior to discharge 02/18/2017 continuing bronchodilator steroids antibiotics. Aminophyllin added. Start CPAP's. Probably not quite ready for extubation. Current Visit: Yes (3) Status asthmaticus Status: Resolved Assessment and plan: Treating with steroids and bronchodilators. 02/18/2017 will need to be sure she is on controller medications before discharge. Current Visit: No
[2017-02-18] MEDS ORDERED: ENOXAPARIN 120 MG/0.8 ML SYRINGE SUBCUT SCH (07:00)
--- NOTE | 2017-02-18 08:10 | Cardiology Progress Note ---
Assessment and Plan (1) Acute respiratory failure with hypercapnia Status: Resolved Assessment and plan: 61-year-old female, admitted with sudden onset respiratory failure, now intubated. Mildly elevated cardiac biomarkers, EKG changes, suggestive recent injury. She is very comfortable on the ventilator, alert, cooperative care. She was not hypoxic. CT angiogram of the chest showed no PE or pneumonia. Differential for presentation is still wide, severe asthma exacerbation is possible. Doubt primary cardiac event, but given her severe presentation, demand ischemia is likely. Her cardiac injury is likely secondary to status asthmaticus. -Continue aspirin. -Stop LMW H. There is no ACS. -LDL 118 -She is already moderately bradycardic, would hold off adding a beta-nidia at this time. This was exacerbated by labetalol. Once heart rate recovers, we may consider cardiac selective beta-nidia, especially, if she has cardiomyopathy. She may need ischemic workup also in this case Current Visit: No Cardiology - PN: Subj Interval history: She still intubated, alert, awake today. ABG improved. No chest pain. Complains of sore throat Exam (Progress Note) - Constitutional Vitals: Period Temp Pulse Resp BP Sys/Sparks Pulse Ox Last 24 Hr 96.8 F-98 F 46-92 10-15 102-185/54-135 99-100 General appearance: no acute distress, morbidly obese - Head Head exam: Present: normal inspection. Absent: contusion - Eye Eye exam: Absent: conjunctival injection, scleral icterus Pupils: Absent: dilated - ENT ENT exam: Present: normal external ear exam - Neck Neck exam: Present: normal inspection - Respiratory Respiratory exam: Present: decreased breath sounds, prolonged expiratory phase - Cardiovascular Cardiovascular exam: Present: regular rate and rhythm. Absent: JVD, systolic murmur - GI/Abdominal GI/Abdominal exam: Present: hypoactive bowel sounds. Absent: distended - Extremities Exam Extremities exam: Present: normal inspection, normal capillary refill. Absent: edema - Neurological Exam Neurological exam: Present: alert - Skin Skin exam: Present: normal color, warm. Absent: cyanosis Result/EKG - Labs CBC & BMP: 02/18/17 00:24 02/18/17 00:24 Lab Results: I have reviewed the past 24 hour labs Labs: Laboratory Results - last 24 hr 02/17/17 02/17/17 02/17/17 09:11 09:11 09:11 WBC 22.7 H RBC 4.29 Hgb 12.1 Hct 39.6 MCV 92.3 MCH 28 MCHC 30.6 L RDW 15.3 Plt Count 242 MPV 12.3 H Neut % (Auto) 88.0 H Lymph % (Auto) 5.7 L [place] % (Auto) 3.5 Eos % (Auto) 0.0 Baso % (Auto) 0.2 Neut # (Auto) 20.0 H Lymph # (Auto) 1.3 L [place] # (Auto) 0.8 Eos # (Auto) 0.0 Baso # (Auto) 0.1 Total Counted 100 Immature Gran % 2.6 Nucleated RBC % 0.0 Immature Gran # 0.58 Segmented Neutrophils 87 H Band Neutrophils 1 Lymphocytes 10 L Monocytes 2 Nucleated RBCs # 0.00 Platelet Estimate Adequate Giant Platelets Few Immature Plt Fraction 0.0 Hypochromasia 1+ Microcytosis Slight INR 1.0 PT Patient/Control Mix 10.5 Circ Anticoag PTT 24.4 ABG pH ABG pCO2 ABG pO2 ABG HCO3 ABG Total CO2 ABG O2 Saturation ABG Base Excess FiO2 Sodium 141 Potassium 4.7 Chloride 106 Carbon Dioxide 30 Anion Gap 9.7 BUN 17 Creatinine 1.00 GFR Calculation 96 BUN/Creatinine Ratio 17.00 Glucose 198 H POC Glucose Hemoglobin A1c Calculated Osmolality 288.3 Lactic Acid 4.6 H Calcium 8.8 Magnesium 2.8 H Total Bilirubin < 0.39 Direct Bilirubin Indirect Bilirubin AST 23 ALT 30 Alkaline Phosphatase 78 Total Creatine Kinase CK-MB (CK-2) CK and CKMB Interp Troponin I B-Natriuretic Peptide Total Protein 7.2 Albumin 3.9 Globulin 3.3 Albumin/Globulin Ratio 1.1 Triglycerides Cholesterol LDL Cholesterol VLDL Cholesterol HDL Cholesterol Heart Disease Risk Ratio Free T4 TSH 3rd Generation Urine Color Urine Appearance Urine pH Ur Specific [place] Urine Protein Urine Glucose (UA) Urine Ketones Urine Blood Urine Nitrate Urine Bilirubin Urine Urobilinogen Urine Leukocytes Urine RBC Urine WBC Ur Squamous Epith Cells Urine Mucus Ur Culture Indicated? Urine Opiates Screen Ur Barbiturates Screen Ur Phencyclidine Scrn U Amphetamine/Methamph U Benzodiazepines Scrn U Cocaine Metab Screen U Cannabinoids Screen 02/17/17 02/17/17 02/17/17 09:11 09:11 09:11 WBC RBC Hgb Hct MCV MCH MCHC RDW Plt Count MPV Neut % (Auto) Lymph % (Auto) [place] % (Auto) Eos % (Auto) Baso % (Auto) Neut # (Auto) Lymph # (Auto) [place] # (Auto) Eos # (Auto) Baso # (Auto) Total Counted Immature Gran % Nucleated RBC % Immature Gran # Segmented Neutrophils Band Neutrophils Lymphocytes Monocytes Nucleated RBCs # Platelet Estimate Giant Platelets Immature Plt Fraction Hypochromasia Microcytosis INR PT Patient/Control Mix Circ Anticoag PTT ABG pH ABG pCO2 ABG pO2 ABG HCO3 ABG Total CO2 ABG O2 Saturation ABG Base Excess FiO2 Sodium Potassium Chloride Carbon Dioxide Anion Gap BUN Creatinine GFR Calculation BUN/Creatinine Ratio Glucose POC Glucose Hemoglobin A1c Calculated Osmolality Lactic Acid Calcium Magnesium Total Bilirubin Direct Bilirubin Indirect Bilirubin AST ALT Alkaline Phosphatase Total Creatine Kinase 129 CK-MB (CK-2) 4.1 H CK and CKMB Interp Troponin I 0.657 H B-Natriuretic Peptide 113 H Total Protein Albumin Globulin Albumin/Globulin Ratio Triglycerides Cholesterol LDL Cholesterol VLDL Cholesterol HDL Cholesterol Heart Disease Risk Ratio Free T4 TSH 3rd Generation Urine Color Straw Urine Appearance Clear Urine pH 5.0 Ur Specific [place] 1.013 Urine Protein Negative Urine Glucose (UA) Negative Urine Ketones Negative Urine Blood Negative Urine Nitrate Negative Urine Bilirubin Negative Urine Urobilinogen < 2.0 H Urine Leukocytes Negative Urine RBC 2 Urine WBC 1 Ur Squamous Epith Cells Occasional Urine Mucus Occasional Ur Culture Indicated? Not indicated Urine Opiates Screen Ur Barbiturates Screen Ur Phencyclidine Scrn U Amphetamine/Methamph U Benzodiazepines Scrn U Cocaine Metab Screen U Cannabinoids Screen 02/17/17 02/17/17 02/17/17 09:11 09:11 09:11 WBC RBC Hgb Hct MCV MCH MCHC RDW Plt Count MPV Neut % (Auto) Lymph % (Auto) [place] % (Auto) Eos % (Auto) Baso % (Auto) Neut # (Auto) Lymph # (Auto) [place] # (Auto) Eos # (Auto) Baso # (Auto) Total Counted Immature Gran % Nucleated RBC % Immature Gran # Segmented Neutrophils Band Neutrophils Lymphocytes Monocytes Nucleated RBCs # Platelet Estimate Giant Platelets Immature Plt Fraction Hypochromasia Microcytosis INR PT Patient/Control Mix Circ Anticoag PTT ABG pH ABG pCO2 ABG pO2 ABG HCO3 ABG Total CO2 ABG O2 Saturation ABG Base Excess FiO2 Sodium Potassium Chloride Carbon Dioxide Anion Gap BUN Creatinine GFR Calculation BUN/Creatinine Ratio Glucose POC Glucose Hemoglobin A1c Calculated Osmolality Lactic Acid Calcium Magnesium Total Bilirubin Direct Bilirubin Indirect Bilirubin AST ALT Alkaline Phosphatase Total Creatine Kinase CK-MB (CK-2) CK and CKMB Interp Troponin I B-Natriuretic Peptide Total Protein Albumin Globulin Albumin/Globulin Ratio Triglycerides Cholesterol LDL Cholesterol VLDL Cholesterol HDL Cholesterol Heart Disease Risk Ratio Free T4 0.86 TSH 3rd Generation 2.680 Urine Color Urine Appearance Urine pH Ur Specific [place] Urine Protein Urine Glucose (UA) Urine Ketones Urine Blood Urine Nitrate Urine Bilirubin Urine Urobilinogen Urine Leukocytes Urine RBC Urine WBC Ur Squamous Epith Cells Urine Mucus Ur Culture Indicated? Urine Opiates Screen Positive H Ur Barbiturates Screen Negative Ur Phencyclidine Scrn Negative U Amphetamine/Methamph Negative U Benzodiazepines Scrn Positive H U Cocaine Metab Screen Negative U Cannabinoids Screen Negative 02/17/17 02/17/17 02/17/17 09:14 09:24 10:46 WBC RBC Hgb Hct MCV MCH MCHC RDW Plt Count MPV Neut % (Auto) Lymph % (Auto) [place] % (Auto) Eos % (Auto) Baso % (Auto) Neut # (Auto) Lymph # (Auto) [place] # (Auto) Eos # (Auto) Baso # (Auto) Total Counted Immature Gran % Nucleated RBC % Immature Gran # Segmented Neutrophils Band Neutrophils Lymphocytes Monocytes Nucleated RBCs # Platelet Estimate Giant Platelets Immature Plt Fraction Hypochromasia Microcytosis INR PT Patient/Control Mix Circ Anticoag PTT ABG pH 7.286 L ABG pCO2 53.5 H ABG pO2 537.0 H ABG HCO3 22.8 ABG Total CO2 23.1 ABG O2 Saturation 99.8 ABG Base Excess -2.0 FiO2 100.00 Sodium Potassium Chloride Carbon Dioxide Anion Gap BUN Creatinine GFR Calculation BUN/Creatinine Ratio Glucose POC Glucose Hemoglobin A1c 6.5 H Calculated Osmolality Lactic Acid Calcium Magnesium Total Bilirubin < 0.39 Direct Bilirubin < 0.050 Indirect Bilirubin 0.3 AST 26 ALT 31 Alkaline Phosphatase 77 Total Creatine Kinase CK-MB (CK-2) CK and CKMB Interp Troponin I B-Natriuretic Peptide Total Protein 7.5 Albumin 4.0 Globulin Albumin/Globulin Ratio Triglycerides Cholesterol LDL Cholesterol VLDL Cholesterol HDL Cholesterol Heart Disease Risk Ratio Free T4 TSH 3rd Generation Urine Color Urine Appearance Urine pH Ur Specific [place] Urine Protein Urine Glucose (UA) Urine Ketones Urine Blood Urine Nitrate Urine Bilirubin Urine Urobilinogen Urine Leukocytes Urine RBC Urine WBC Ur Squamous Epith Cells Urine Mucus Ur Culture Indicated? Urine Opiates Screen Ur Barbiturates Screen Ur Phencyclidine Scrn U Amphetamine/Methamph U Benzodiazepines Scrn U Cocaine Metab Screen U Cannabinoids Screen 02/17/17 02/17/17 02/17/17 15:20 17:13 18:14 WBC RBC Hgb Hct MCV MCH MCHC RDW Plt Count MPV Neut % (Auto) Lymph % (Auto) [place] % (Auto) Eos % (Auto) Baso % (Auto) Neut # (Auto) Lymph # (Auto) [place] # (Auto) Eos # (Auto) Baso # (Auto) Total Counted Immature Gran % Nucleated RBC % Immature Gran # Segmented Neutrophils Band Neutrophils Lymphocytes Monocytes Nucleated RBCs # Platelet Estimate Giant Platelets Immature Plt Fraction Hypochromasia Microcytosis INR PT Patient/Control Mix Circ Anticoag PTT ABG pH 7.358 ABG pCO2 47.8 ABG pO2 210.0 H ABG HCO3 25.2 ABG Total CO2 24.2 ABG O2 Saturation 99.2 ABG Base Excess 0.9 FiO2 50.00 Sodium Potassium Chloride Carbon Dioxide Anion Gap BUN Creatinine GFR Calculation BUN/Creatinine Ratio Glucose POC Glucose 132 H Hemoglobin A1c Calculated Osmolality Lactic Acid Calcium Magnesium Total Bilirubin Direct Bilirubin Indirect Bilirubin AST ALT Alkaline Phosphatase Total Creatine Kinase 170 D CK-MB (CK-2) 7.1 H CK and CKMB Interp 4.2 Troponin I 1.950 H D B-Natriuretic Peptide Total Protein Albumin Globulin Albumin/Globulin Ratio Triglycerides Cholesterol LDL Cholesterol VLDL Cholesterol HDL Cholesterol Heart Disease Risk Ratio Free T4 TSH 3rd Generation Urine Color Urine Appearance Urine pH Ur Specific [place] Urine Protein Urine Glucose (UA) Urine Ketones Urine Blood Urine Nitrate Urine Bilirubin Urine Urobilinogen Urine Leukocytes Urine RBC Urine WBC Ur Squamous Epith Cells Urine Mucus Ur Culture Indicated? Urine Opiates Screen Ur Barbiturates Screen Ur Phencyclidine Scrn U Amphetamine/Methamph U Benzodiazepines Scrn U Cocaine Metab Screen U Cannabinoids Screen 02/17/17 02/18/17 02/18/17 23:49 00:24 00:24 WBC 15.5 H D RBC 3.90 Hgb 11.2 L Hct 34.5 L MCV 88.5 MCH 29 MCHC 32.5 RDW 15.5 Plt Count 209 MPV 13.2 H Neut % (Auto) 88.5 H Lymph % (Auto) 8.5 L [place] % (Auto) 1.9 Eos % (Auto) 0.0 Baso % (Auto) 0.1 Neut # (Auto) 13.7 H Lymph # (Auto) 1.3 L [place] # (Auto) 0.3 Eos # (Auto) 0.0 Baso # (Auto) 0.0 Total Counted Immature Gran % 1.0 Nucleated RBC % 0.0 Immature Gran # 0.15 Segmented Neutrophils Band Neutrophils Lymphocytes Monocytes Nucleated RBCs # 0.00 Platelet Estimate Giant Platelets Immature Plt Fraction 0.0 Hypochromasia Microcytosis INR PT Patient/Control Mix Circ Anticoag PTT ABG pH ABG pCO2 ABG pO2 ABG HCO3 ABG Total CO2 ABG O2 Saturation ABG Base Excess FiO2 Sodium 143 Potassium 3.8 Chloride 107 Carbon Dioxide 28 Anion Gap 11.8 BUN 19 H Creatinine 0.80 GFR Calculation 116 BUN/Creatinine Ratio 23.00 H Glucose 164 H POC Glucose 164 H Hemoglobin A1c Calculated Osmolality 290.0 Lactic Acid Calcium 8.7 Magnesium Total Bilirubin Direct Bilirubin Indirect Bilirubin AST ALT Alkaline Phosphatase Total Creatine Kinase CK-MB (CK-2) CK and CKMB Interp Troponin I B-Natriuretic Peptide Total Protein Albumin Globulin Albumin/Globulin Ratio Triglycerides Cholesterol LDL Cholesterol VLDL Cholesterol HDL Cholesterol Heart Disease Risk Ratio Free T4 TSH 3rd Generation Urine Color Urine Appearance Urine pH Ur Specific [place] Urine Protein Urine Glucose (UA) Urine Ketones Urine Blood Urine Nitrate Urine Bilirubin Urine Urobilinogen Urine Leukocytes Urine RBC Urine WBC Ur Squamous Epith Cells Urine Mucus Ur Culture Indicated? Urine Opiates Screen Ur Barbiturates Screen Ur Phencyclidine Scrn U Amphetamine/Methamph U Benzodiazepines Scrn U Cocaine Metab Screen U Cannabinoids Screen 02/18/17 02/18/17 02/18/17 00:24 00:24 04:30 WBC RBC Hgb Hct MCV MCH MCHC RDW Plt Count MPV Neut % (Auto) Lymph % (Auto) [place] % (Auto) Eos % (Auto) Baso % (Auto) Neut # (Auto) Lymph # (Auto) [place] # (Auto) Eos # (Auto) Baso # (Auto) Total Counted Immature Gran % Nucleated RBC % Immature Gran # Segmented Neutrophils Band Neutrophils Lymphocytes Monocytes Nucleated RBCs # Platelet Estimate Giant Platelets Immature Plt Fraction Hypochromasia Microcytosis INR PT Patient/Control Mix Circ Anticoag PTT ABG pH 7.402 ABG pCO2 47.9 ABG pO2 184.6 H ABG HCO3 29.1 H ABG Total CO2 30.6 H ABG O2 Saturation 99.0 ABG Base Excess 3.7 H FiO2 Sodium 142 Potassium 4.3 Chloride 107 Carbon Dioxide 26 Anion Gap 13.3 BUN 18 Creatinine 0.80 GFR Calculation 116 BUN/Creatinine Ratio 22.00 H Glucose 162 H POC Glucose Hemoglobin A1c Calculated Osmolality 288.1 Lactic Acid Calcium 8.7 Magnesium 2.6 H Total Bilirubin Direct Bilirubin Indirect Bilirubin AST ALT Alkaline Phosphatase Total Creatine Kinase 150 CK-MB (CK-2) 6.7 H CK and CKMB Interp 4.5 Troponin I 1.920 H B-Natriuretic Peptide Total Protein Albumin Globulin Albumin/Globulin Ratio Triglycerides 143 Cholesterol 198 LDL Cholesterol 118.0 VLDL Cholesterol 28.6 HDL Cholesterol 52 Heart Disease Risk Ratio 3.81 Free T4 TSH 3rd Generation Urine Color Urine Appearance Urine pH Ur Specific [place] Urine Protein Urine Glucose (UA) Urine Ketones Urine Blood Urine Nitrate Urine Bilirubin Urine Urobilinogen Urine Leukocytes Urine RBC Urine WBC Ur Squamous Epith Cells Urine Mucus Ur Culture Indicated? Urine Opiates Screen Ur Barbiturates Screen Ur Phencyclidine Scrn U Amphetamine/Methamph U Benzodiazepines Scrn U Cocaine Metab Screen U Cannabinoids Screen 02/18/17 05:26 WBC RBC Hgb Hct MCV MCH MCHC RDW Plt Count MPV Neut % (Auto) Lymph % (Auto) [place] % (Auto) Eos % (Auto) Baso % (Auto) Neut # (Auto) Lymph # (Auto) [place] # (Auto) Eos # (Auto) Baso # (Auto) Total Counted Immature Gran % Nucleated RBC % Immature Gran # Segmented Neutrophils Band Neutrophils Lymphocytes Monocytes Nucleated RBCs # Platelet Estimate Giant Platelets Immature Plt Fraction Hypochromasia Microcytosis INR PT Patient/Control Mix Circ Anticoag PTT ABG pH ABG pCO2 ABG pO2 ABG HCO3 ABG Total CO2 ABG O2 Saturation ABG Base Excess FiO2 Sodium Potassium Chloride Carbon Dioxide Anion Gap BUN Creatinine GFR Calculation BUN/Creatinine Ratio Glucose POC Glucose 174 H Hemoglobin A1c Calculated Osmolality Lactic Acid Calcium Magnesium Total Bilirubin Direct Bilirubin Indirect Bilirubin AST ALT Alkaline Phosphatase Total Creatine Kinase CK-MB (CK-2) CK and CKMB Interp Troponin I B-Natriuretic Peptide Total Protein Albumin Globulin Albumin/Globulin Ratio Triglycerides Cholesterol LDL Cholesterol VLDL Cholesterol HDL Cholesterol Heart Disease Risk Ratio Free T4 TSH 3rd Generation Urine Color Urine Appearance Urine pH Ur Specific [place] Urine Protein Urine Glucose (UA) Urine Ketones Urine Blood Urine Nitrate Urine Bilirubin Urine Urobilinogen Urine Leukocytes Urine RBC Urine WBC Ur Squamous Epith Cells Urine Mucus Ur Culture Indicated? Urine Opiates Screen Ur Barbiturates Screen Ur Phencyclidine Scrn U Amphetamine/Methamph U Benzodiazepines Scrn U Cocaine Metab Screen U Cannabinoids Screen - EKG EKG results: interpreted by me
[2017-02-18] MEDS: ASPIRIN 325 MG TABLET PO SCH (08:20)
--- NOTE | 2017-02-18 08:43 | EKG Report ---
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
[2017-02-18] MEDS: ALBUTEROL/IPRATROPIUM 3 ML NEB RESP TX PRN (09:51)
--- NOTE | 2017-02-18 10:32 | XRay Report ---
Portable chest. Indication: Shortness of breath. Comparison: Yesterday's exam. The heart is normal in size. An endotracheal tube and nasogastric tube are in satisfactory position. The pulmonary vasculature is normal. Linear atelectasis has developed at the right lung base. Patchy interstitial infiltrate has developed at the left lung base. No pneumothorax or pleural effusion. Impression: Interval development of right basilar atelectasis and left basilar pneumonia. PROCEDURE INTERPRETED AT [facility] DEPARTMENT OF RADIOLOGY Final Report Signed by: Dr. Brandy Oliver
[2017-02-18] MEDS: AMINOPHYLLINE 500 MG in SODIUM CHLORIDE 0.9% 480 ML IV SCH ×2 (10:40→22:20)
--- NOTE | 2017-02-18 12:39 | ECHO Report ---
Melodie Suárez Exam Date: 02/18/2017 07:27 Referring Physician: Technologist: emmanuel Arnold ARDMS, RVT Age: 61 Ht (in): 64 Wt (lb): 250 Gender: F Exam Location: [facility] Echo Indications: Essential (primary) hypertension, Acute respiratory failure, Leukocytosis, Obesity BP: 127 / 77 HR: 58 Rhythm: Sinus Technical Quality: Technically difficult study IMPRESSIONS Normal left ventricular size, with mild concentric hypertrophy, with normal systolic function. Estimated left ventricular ejection fraction 65%. Normal diastolic function. No significant valvular abnormalities. MEASUREMENTS (Male / Female) Normal Values 2D ECHO LV Diastolic Diameter PLAX 4.4 cm 4.2 - 5.9 / 3.9 - 5.3 cm LV Systolic Diameter PLAX 2.9 cm LV Fractional Shortening PLAX 35.0 % IVS Diastolic Thickness 1.1 cm 0.6 - 1.0 / 0.6 - 0.9 cm LVPW Diastolic Thickness 0.8 cm 0.6 - 1.0 / 0.6 - 0.9 cm RV Internal Dim ED PLAX 3.4 cm Aortic Root Diameter 3.8 cm LA Systolic Diameter LX 3.7 cm 3.0 - 4.0 / 2.7 - 3.8 cm FINDINGS Left Ventricle Normal left ventricular size, with mild concentric hypertrophy, with normal systolic function. Estimated left ventricular ejection fraction 65%. Normal diastolic function. Right Ventricle The right ventricle is normal in size and function. Right Atrium The right atrium is normal in size. Left Atrium The left atrium is normal in size. Mitral Valve Morphologically normal mitral valve without significant stenosis or prolapse. There is no mitral regurgitation. Aortic Valve Morphologically normal aortic valve without significant sclerosis or stenosis. There is no aortic regurgitation. Tricuspid Valve Morphologically normal tricuspid valve without significant stenosis or regurgitation. Insufficient data to estimate pulmonary artery systolic pressure. Pulmonic Valve Morphologically normal pulmonic valve without significant stenosis. There is no pulmonic regurgitation. Pericardium Normal pericardium without effusion. Aorta Normal ascending aorta dimension. Ben Santana (Electronically Signed) Final Date: 18 February 2017 12:38
[2017-02-18] MEDS: MORPHINE 2 MG/1 ML SYRINGE IV PRN ×2 (15:30→18:58)
--- NOTE | 2017-02-18 16:55 | Hospitalist Progress Note ---
Assessment and Plan (1) Status asthmaticus Status: Resolved Assessment and plan: Pulmonary assisting Current Visit: No (2) Hypertension Status: Chronic Current Visit: No Qualifiers: Hypertension type: essential hypertension Qualified Code(s): I10 - Essential (primary) hypertension (3) Asthma with exacerbation Status: Acute Assessment and plan: Duonebs, steroids, abx Current Visit: Yes (4) Acute respiratory failure Status: Acute Assessment and plan: Pulmonary assisting Cpap trials Current Visit: Yes (5) Leukocytosis Status: Acute Assessment and plan: Improving Current Visit: No Hospitalist: Subjective Interval history: No acute events overnight. Patient is awake and will follow commands. She reports that her throat hurts. Exam - Constitutional Vitals: Period Temp Pulse Resp BP Sys/Sparks Pulse Ox Last 24 Hr 97.3 F-97.9 F 55-73 12-20 110-160/54-119 99-100 General appearance: normal weight - Head Head exam: Present: normocephalic, atraumatic - Eye Eye exam: Present: EOMI Pupils: Present: FELISHA - ENT ENT exam: Present: normal exam - Neck Neck exam: Present: normal inspection - Respiratory Respiratory exam: Present: clear to auscultation bilaterally. Absent: rhonchi, wheezes - Cardiovascular Cardiovascular exam: Present: regular rate and rhythm - GI/Abdominal GI/Abdominal exam: Present: normal bowel sounds, soft. Absent: tenderness, rebound - Extremities Exam Extremities exam: Present: normal inspection - Back Exam Back exam: Present: normal inspection - Neurological Exam Neurological exam: Present: alert - Psychiatric Psychiatric exam: Present: normal affect, normal mood - Skin Skin exam: Present: warm, intact Results - Labs CBC & BMP: 02/18/17 00:24 02/18/17 00:24
[2017-02-19] MEDS: INSULIN REGULAR 100 UNIT/ML SUBCUT SCH ×4 (00:49→18:11)
[2017-02-19] MEDS: methylPREDNISolone SOD SUC 125 MG/2 ML VIAL IV SCH ×4 (00:49→18:21)
[2017-02-19] MEDS: PROPOFOL 1,000 MG/100 ML BOTTLE IV SCH ×3 (01:55→10:39)
[2017-02-19 04:04] LABS: ABG Base Excess 5.6 MMOL/L (-2.5-2.5); ABG HCO3 29.5 MMOL/L (20-26); ABG Oxygen Saturation 98.3 % (95-100); ABG PCO2 46.6 MM HG (35-48); ABG PH 7.429 (7.35-7.45); ABG TCO2 27.4 MMOL/L (23-27); Allen Test Positive; Pt O2 Delivery Device Ventilator
[2017-02-19] MEDS: PIPERACILLIN/TAZOBACTAM 3,375 MG in SODIUM CHLORIDE 0.9% 100 ML IV SCH ×3 (04:24→18:20)
[2017-02-19 04:50] LABS: Basophils % 0.1 % (0.0-0.8); Hematocrit 35.7 VOL% (35.7-47.0); Hemoglobin 11.4 GM/DL (12.0-16.0); Immature Granulocytes % 1.2 %; Immature Granulocytes Absolute 0.16 #; Lymphocytes % 7.7 % (21.3-54.2); Mean Corpuscular HGB Conc 31.9 GM/DL (32-36); Mean Corpuscular Hemoglobin 28 PG (27-34); Mean Corpuscular Volume 88.1 FL (87-102); Mean Platelet Volume 12.5 FL (9.6-12.0); Monocytes # 0.5 10*3/uL (0.11-0.8); Monocytes % 3.5 % (1.7-12.7); Neutrophils # 11.6 10*3/uL (1.4-7.4); Neutrophils % 87.5 % (38.7-73.9); Platelet Count 244 T/CUMM (130-400); Red Blood Count 4.05 MC/CUMM (3.8-5.5); Red Cell Distribution Width 15.1 % (9.3-17.3); White Blood Count 13.3 T/CUMM (4-12)
[2017-02-19 05:17] LABS: Calcium 8.9 MG/DL (8.5-10.1); Magnesium 3.3 MG/DL (1.8-2.4); Osmolality,Calculated 301.3 MOS/KG (273-304); Potassium 3.5 MMOL/L (3.5-5.1)
--- NOTE | 2017-02-19 07:28 | Pulmonology Progress Note ---
Pulmonary - PN: Subj Interval history: This 61-year-old black female has severe asthma with acute exacerbation, status asthmaticus, and respiratory failure. She is responsive on the ventilator. Still having some wheezing. Her airway pressures are little higher today. PCO2 is elevated at 47 despite mechanical ventilation. Normal pH at that level. Will add Aminophyllin. Will start CPAP today. 02/19/2017 patient with severe asthma and acute exacerbation. Clearly she is better today. No wheezing. Tolerating CPAP. Airway pressures down from about 35-23. Should be able to get her extubated today. Exam (Progress Note) - Constitutional Vitals: Period Temp Pulse Resp BP Sys/Sparks Pulse Ox Last 24 Hr 97 F-97.9 F 49-73 12-22 110-158/61-119 96-100 Exam: Vital signs normal. Pupils react to light. Orotracheal tube in place. Neck supple. Chest reveals slightly prolonged expiratory phase but no wheezes. Equal breath sounds. Heart normal rate and rhythm no murmurs. Abdomen soft nontender no masses. Remedies no clubbing cyanosis or edema. Calves nontender. Results - Labs CBC & BMP: 02/19/17 04:17 02/19/17 04:17 Lab Results: I have reviewed the past 24 hour labs - Diagnostic Findings Procedure: Chest x-ray: image reviewed by me (Lung churchill clear. ET tube good position.) Assessment and Plan (1) Acute respiratory failure Status: Acute Assessment and plan: ABGs look okay on the ventilator. She is still fairly tight but her peak airway pressures were only around 24. Hopefully can wean her over the next day or so. 02/18/2017 PCO2 is a little elevated. Easily oxygenated. Airway pressures in the low 30s. Adding Aminophyllin. 02/19/2017 this is due to status asthmaticus. It has improved. PCO2 is a little bit high. Will bump with Diamox for 3 days. She should be ready for extubation. Current Visit: Yes (2) Asthma with exacerbation Status: Acute Assessment and plan: Intravenous corticosteroids, nebulized bronchodilators, empiric antibiotics. She will clearly need a controller medication such as Advair or Symbicort or Breo prior to discharge 02/18/2017 continuing bronchodilator steroids antibiotics. Aminophyllin added. Start CPAP's. Probably not quite ready for extubation. 02/19/2017 not wheezing. Alert and calm. Check ABGs and mechanics with CPAP this morning. Should be able to extubate. Current Visit: Yes
[2017-02-19] MEDS: ALBUTEROL/IPRATROPIUM 3 ML NEB RESP TX PRN ×2 (08:01→19:52)
[2017-02-19 08:10] LABS: Allen Test Positive; Pt O2 Delivery Device Ventilator
[2017-02-19 08:21] LABS: ABG Base Excess 7.1 MMOL/L (-2.5-2.5); ABG HCO3 30.9 MMOL/L (20-26); ABG Oxygen Saturation 99.1 % (95-100); ABG PCO2 38.4 MM HG (35-48); ABG TCO2 26.6 MMOL/L (23-27)
--- NOTE | 2017-02-19 09:30 | Cardiology Progress Note ---
Assessment and Plan (1) Acute respiratory failure with hypercapnia Status: Resolved Assessment and plan: 61-year-old female, admitted with sudden onset respiratory failure, now intubated. Mildly elevated cardiac biomarkers, EKG changes, suggestive recent injury. She is very comfortable on the ventilator, alert, cooperative care. She was not hypoxic. CT angiogram of the chest showed no PE or pneumonia. Differential for presentation is still wide, severe asthma exacerbation is possible. Doubt primary cardiac event, but given her severe presentation, demand ischemia is likely. Her cardiac injury is likely secondary to status asthmaticus. -Continue aspirin. -Stopped LMWH. There is no ACS. Preserved systolic function on echo. -LDL 118 -Start Bystolic 5 mg for hypertension, demand ischemia. The prior bradycardia resolved, was likely exacerbated by labetalol -She did not have significant diastolic dysfunction or pulmonary hypertension on echo. I would hold off diuresis at this point. Monitor closely after extubation Current Visit: No Cardiology - PN: Subj Interval history: Still intubated, she is comfortable on the vent. Blood pressure elevated. Oxygenation improved. Echo showed no significant systolic dysfunction Exam (Progress Note) - Constitutional Vitals: Period Temp Pulse Resp BP Sys/Sparks Pulse Ox Last 24 Hr 97 F-98.4 F 49-75 12-24 110-171/61-99 96-100 General appearance: no acute distress, morbidly obese - Head Head exam: Present: normal inspection. Absent: contusion - Eye Eye exam: Absent: periorbital swelling, laceration to eyelids Pupils: Absent: dilated - ENT ENT exam: Present: normal external ear exam - Neck Neck exam: Present: normal inspection - Respiratory Respiratory exam: Present: clear to auscultation bilaterally, prolonged expiratory phase. Absent: wheezes - Cardiovascular Cardiovascular exam: Present: regular rate and rhythm. Absent: JVD, systolic murmur - GI/Abdominal GI/Abdominal exam: Present: normal bowel sounds. Absent: distended - Extremities Exam Extremities exam: Present: normal inspection, normal capillary refill. Absent: edema - Back Exam Back exam: Present: normal inspection - Neurological Exam Neurological exam: Present: alert - Psychiatric Psychiatric exam: Absent: agitated, anxious - Skin Skin exam: Present: normal color, warm. Absent: cyanosis Result/EKG - Labs CBC & BMP: 02/19/17 04:17 02/19/17 04:17 Lab Results: I have reviewed the past 24 hour labs Labs: Laboratory Results - last 24 hr 02/18/17 02/18/17 02/18/17 11:45 18:15 23:22 WBC RBC Hgb Hct MCV MCH MCHC RDW Plt Count MPV Neut % (Auto) Lymph % (Auto) [place] % (Auto) Eos % (Auto) Baso % (Auto) Neut # (Auto) Lymph # (Auto) [place] # (Auto) Eos # (Auto) Baso # (Auto) Immature Gran % Nucleated RBC % Immature Gran # Nucleated RBCs # Immature Plt Fraction ABG pH ABG pCO2 ABG pO2 ABG HCO3 ABG Total CO2 ABG O2 Saturation ABG Base Excess FiO2 Sodium Potassium Chloride Carbon Dioxide Anion Gap BUN Creatinine GFR Calculation BUN/Creatinine Ratio Glucose POC Glucose 149 H 144 H 161 H Calculated Osmolality Calcium Magnesium Troponin I Theophylline 02/19/17 02/19/17 02/19/17 03:58 04:17 04:17 WBC 13.3 H RBC 4.05 Hgb 11.4 L Hct 35.7 MCV 88.1 MCH 28 MCHC 31.9 L RDW 15.1 Plt Count 244 MPV 12.5 H Neut % (Auto) 87.5 H Lymph % (Auto) 7.7 L [place] % (Auto) 3.5 Eos % (Auto) 0.0 Baso % (Auto) 0.1 Neut # (Auto) 11.6 H Lymph # (Auto) 1.0 L [place] # (Auto) 0.5 Eos # (Auto) 0.0 Baso # (Auto) 0.0 Immature Gran % 1.2 Nucleated RBC % 0.0 Immature Gran # 0.16 Nucleated RBCs # 0.00 Immature Plt Fraction 0.0 ABG pH 7.429 ABG pCO2 46.6 ABG pO2 109.0 H ABG HCO3 29.5 H ABG Total CO2 27.4 H ABG O2 Saturation 98.3 ABG Base Excess 5.6 H FiO2 35.00 Sodium 148 H Potassium 3.5 Chloride 110 H Carbon Dioxide 33 H Anion Gap 8.5 BUN 26 H Creatinine 0.80 GFR Calculation 116 BUN/Creatinine Ratio 32.00 H Glucose 147 H POC Glucose Calculated Osmolality 301.3 Calcium 8.9 Magnesium 3.3 H Troponin I Theophylline 02/19/17 02/19/17 02/19/17 04:17 04:17 05:34 WBC RBC Hgb Hct MCV MCH MCHC RDW Plt Count MPV Neut % (Auto) Lymph % (Auto) [place] % (Auto) Eos % (Auto) Baso % (Auto) Neut # (Auto) Lymph # (Auto) [place] # (Auto) Eos # (Auto) Baso # (Auto) Immature Gran % Nucleated RBC % Immature Gran # Nucleated RBCs # Immature Plt Fraction ABG pH ABG pCO2 ABG pO2 ABG HCO3 ABG Total CO2 ABG O2 Saturation ABG Base Excess FiO2 Sodium Potassium Chloride Carbon Dioxide Anion Gap BUN Creatinine GFR Calculation BUN/Creatinine Ratio Glucose POC Glucose 155 H Calculated Osmolality Calcium Magnesium Troponin I 0.571 H D Theophylline 13.7 02/19/17 07:50 WBC RBC Hgb Hct MCV MCH MCHC RDW Plt Count MPV Neut % (Auto) Lymph % (Auto) [place] % (Auto) Eos % (Auto) Baso % (Auto) Neut # (Auto) Lymph # (Auto) [place] # (Auto) Eos # (Auto) Baso # (Auto) Immature Gran % Nucleated RBC % Immature Gran # Nucleated RBCs # Immature Plt Fraction ABG pH 7.510 H ABG pCO2 38.4 ABG pO2 146.0 H ABG HCO3 30.9 H ABG Total CO2 26.6 ABG O2 Saturation 99.1 ABG Base Excess 7.1 H FiO2 35.00 Sodium Potassium Chloride Carbon Dioxide Anion Gap BUN Creatinine GFR Calculation BUN/Creatinine Ratio Glucose POC Glucose Calculated Osmolality Calcium Magnesium Troponin I Theophylline - EKG EKG results: interpreted by me
[2017-02-19 09:43] LABS: Allen Test Positive
[2017-02-19 09:46] LABS: ABG Base Excess 7.3 MMOL/L (-2.5-2.5); ABG Oxygen Saturation 96.7 % (95-100); ABG PH 7.454 (7.35-7.45); ABG PO2 83.5 MM HG (80-95); ABG TCO2 28.5 MMOL/L (23-27)
[2017-02-19] MEDS: ASPIRIN 325 MG TABLET PO SCH (10:32)
--- NOTE | 2017-02-19 10:32 | XRay Report ---
Portable chest. Indication: Shortness of breath. Comparison: Yesterday's exam. The heart is mildly enlarged. An endotracheal tube and nasogastric tube are in satisfactory position. Right basilar atelectasis is stable. Improvement in the appearance of the left lung base. Surgical hardware in the left shoulder. Impression: Stable right basilar atelectasis. Improving left basilar infiltrate. PROCEDURE INTERPRETED AT [facility] DEPARTMENT OF RADIOLOGY Final Report Signed by: Dr. Brandy Oliver
[2017-02-19] MEDS: NEBIVOLOL 5 MG TABLET PO SCH (10:33)
[2017-02-19] MEDS: AMINOPHYLLINE 500 MG in SODIUM CHLORIDE 0.9% 480 ML IV SCH ×2 (10:39→22:34)
[2017-02-19] MEDS: MORPHINE 2 MG/1 ML SYRINGE IV PRN (15:17)
--- NOTE | 2017-02-19 16:26 | Hospitalist Progress Note ---
Assessment and Plan (1) Status asthmaticus Status: Resolved Assessment and plan: Pulmonary assisting Current Visit: No (2) Hypertension Status: Chronic Current Visit: No Qualifiers: Hypertension type: essential hypertension Qualified Code(s): I10 - Essential (primary) hypertension (3) Asthma with exacerbation Status: Acute Assessment and plan: Duonebs, steroids, abx Current Visit: Yes (4) Acute respiratory failure Status: Acute Assessment and plan: Pulmonary assisting Extubated today Current Visit: Yes (5) Leukocytosis Status: Acute Assessment and plan: Improving Current Visit: No Hospitalist: Subjective Interval history: No acute events overnight. Patient was extubated this morning. She has no complaints this morning. Exam - Constitutional Vitals: Period Temp Pulse Resp BP Sys/Sparks Pulse Ox Last 24 Hr 97 F-99.1 F 48-75 12-24 110-171/61-99 96-100 General appearance: over weight - Head Head exam: Present: normocephalic, atraumatic - Eye Eye exam: Present: EOMI Pupils: Present: FELISHA - ENT ENT exam: Present: normal exam - Neck Neck exam: Present: normal inspection - Respiratory Respiratory exam: Present: clear to auscultation bilaterally. Absent: wheezes - Cardiovascular Cardiovascular exam: Present: regular rate and rhythm - GI/Abdominal GI/Abdominal exam: Present: normal bowel sounds, soft. Absent: tenderness, rebound - Extremities Exam Extremities exam: Present: normal inspection - Back Exam Back exam: Present: normal inspection - Neurological Exam Neurological exam: Present: alert, oriented X3 - Psychiatric Psychiatric exam: Present: normal affect, normal mood - Skin Skin exam: Present: warm, intact Results - Labs CBC & BMP: 02/19/17 04:17 02/19/17 04:17
[2017-02-19] MEDS: ALUMINUM/MAGNES/SIMETH MAX STR 30 ML UDCUP PO PRN (20:58)
[2017-02-20] MEDS: INSULIN REGULAR 100 UNIT/ML SUBCUT SCH ×4 (00:12→18:17)
[2017-02-20] MEDS: methylPREDNISolone SOD SUC 125 MG/2 ML VIAL IV SCH ×4 (00:12→18:29)
[2017-02-20] MEDS: ALUMINUM/MAGNES/SIMETH MAX STR 30 ML UDCUP PO PRN ×3 (02:20→19:22)
[2017-02-20] MEDS: PIPERACILLIN/TAZOBACTAM 3,375 MG in SODIUM CHLORIDE 0.9% 100 ML IV SCH ×3 (03:02→18:29)
[2017-02-20 04:03] LABS: ABG Base Excess 4.3 MMOL/L (-2.5-2.5); ABG HCO3 29.2 MMOL/L (20-26); ABG Oxygen Saturation 98.3 % (95-100); ABG PCO2 44.9 MM HG (35-48); ABG PH 7.431 (7.35-7.45); ABG PO2 116.8 MM HG (80-95); ABG TCO2 30.6 MMOL/L (23-27); Allen Test Positive
[2017-02-20 06:36] LABS: Basophils % 0.1 % (0.0-0.8); Hematocrit 38.7 VOL% (35.7-47.0); Hemoglobin 12.2 GM/DL (12.0-16.0); Immature Granulocytes % 3.5 %; Immature Granulocytes Absolute 0.52 #; Lymphocytes % 7.1 % (21.3-54.2); Mean Corpuscular HGB Conc 31.5 GM/DL (32-36); Mean Corpuscular Hemoglobin 28 PG (27-34); Mean Platelet Volume 12.8 FL (9.6-12.0); Monocytes # 0.4 10*3/uL (0.11-0.8); Monocytes % 2.7 % (1.7-12.7); Neutrophils # 12.7 10*3/uL (1.4-7.4); Neutrophils % 86.6 % (38.7-73.9); Platelet Count 241 T/CUMM (130-400); Red Blood Count 4.35 MC/CUMM (3.8-5.5); Red Cell Distribution Width 14.7 % (9.3-17.3); White Blood Count 14.7 T/CUMM (4-12)
[2017-02-20] MEDS: MORPHINE 2 MG/1 ML SYRINGE IV PRN (06:37)
--- NOTE | 2017-02-20 07:07 | Pulmonology Progress Note ---
Pulmonary - PN: Subj Interval history: This 61-year-old black female has severe asthma with acute exacerbation, status asthmaticus, and respiratory failure. She is responsive on the ventilator. Still having some wheezing. Her airway pressures are little higher today. PCO2 is elevated at 47 despite mechanical ventilation. Normal pH at that level. Will add Aminophyllin. Will start CPAP today. 02/19/2017 patient with severe asthma and acute exacerbation. Clearly she is better today. No wheezing. Tolerating CPAP. Airway pressures down from about 35-23. Should be able to get her extubated today. 02/20/2017 patient was extubated without difficulty. O2 sat 97% on room air. Still has some expiratory wheezing but sounds better. Had long discussion with her about the need to be on a controller inhaler. Apparently she has been on Advair in the past and she is not sure why she is not on it now. She does have some difficulty purchasing her medications. I will start her on Advair 500/50 puffs one twice daily today. It was discussed with her the need to use 1 puff twice a day no more in the last. Of course if she is unable to get other brands of controller inhalers with a better pricing structure for her insurance and we could go to 1 of those. She should be able to move to the floor. Exam (Progress Note) - Constitutional Vitals: Period Temp Pulse Resp BP Sys/Sparks Pulse Ox Last 24 Hr 97.0 F-99.1 F 47-75 12-23 116-176/70-99 96-100 Exam: Vital signs normal. Pupils react to light. She is alert and oriented. On room air was 97% O2 sat neck supple. Chest reveals slightly prolonged expiratory phase with minimal wheezes. Equal breath sounds. Heart normal rate and rhythm no murmurs. Abdomen soft nontender no masses. Remedies no clubbing cyanosis or edema. Calves nontender. Results - Labs CBC & BMP: 02/20/17 04:44 02/19/17 04:17 Lab Results: I have reviewed the past 24 hour labs - Diagnostic Findings Procedure: Chest x-ray: image reviewed by me (Mild basilar atelectasis otherwise clear) Assessment and Plan (1) Acute respiratory failure Status: Acute Assessment and plan: ABGs look okay on the ventilator. She is still fairly tight but her peak airway pressures were only around 24. Hopefully can wean her over the next day or so. 02/18/2017 PCO2 is a little elevated. Easily oxygenated. Airway pressures in the low 30s. Adding Aminophyllin. 02/19/2017 this is due to status asthmaticus. It has improved. PCO2 is a little bit high. Will bump with Diamox for 3 days. She should be ready for extubation. 02/20/2017 acute respiratory failure resolved. Not requiring oxygen. Current Visit: Yes (2) Asthma with exacerbation Status: Acute Assessment and plan: Intravenous corticosteroids, nebulized bronchodilators, empiric antibiotics. She will clearly need a controller medication such as Advair or Symbicort or Breo prior to discharge 02/18/2017 continuing bronchodilator steroids antibiotics. Aminophyllin added. Start CPAP's. Probably not quite ready for extubation. 02/19/2017 not wheezing. Alert and calm. Check ABGs and mechanics with CPAP this morning. Should be able to extubate. 02/20/2017 much improved. Minimal wheezes. Room air O2 sat 97%. Will reduce steroids. Continuing Aminophyllin for now. Probably can change theophylline to oral medications tomorrow. Can move to floor. Current Visit: Yes
[2017-02-20 07:20] LABS: Calcium 8.5 MG/DL (8.5-10.1); Magnesium 3.3 MG/DL (1.8-2.4); Osmolality,Calculated 297.7 MOS/KG (273-304); Potassium 3.1 MMOL/L (3.5-5.1)
[2017-02-20] MEDS ORDERED: POTASSIUM CHLORIDE 20 MEQ TABLET PO PRN (07:28)
[2017-02-20 07:36] LABS: Band Neutrophils 1 % (0-10); Giant Platelets Few; Hypochromasia 1+; Lymphocytes 6 % (20-55); Microcytosis Slight; Ovalocytes Slight; Platelet Estimate Adequate; Segmented Neutrophils 86 % (50-85); Total Cells Counted 100
--- NOTE | 2017-02-20 08:44 | XRay Report ---
Exam: XR chest 1V portable Date: 02/20/2017 4:00 AM Indication: Shortness of breath Comparison: 02/19/2017 Technical: AP Findings: Nasogastric tube traverses esophagus into the stomach cardiomegaly is present with low volume effusions and underlying basilar atelectatic change. No pneumothorax. External cardiac leads are present.. Removal of the endotracheal tube is noted. Impression: 1. Cardiomegaly 2. Interval removal of the endotracheal tube with stable position of the nasogastric tube. 3. Tiny low volume effusions with underlying basilar atelectatic change right greater than left with elevation right hemidiaphragm PROCEDURE INTERPRETED AT [facility] DEPARTMENT OF RADIOLOGY Final Report Signed by: Dr. Mitchell Mcfarland
[2017-02-20] MEDS: ASPIRIN 325 MG TABLET PO SCH (09:01)
[2017-02-20] MEDS: AMINOPHYLLINE 500 MG in SODIUM CHLORIDE 0.9% 480 ML IV SCH ×2 (09:01→20:55)
[2017-02-20] MEDS: POTASSIUM CHLORIDE RIDER 10 MEQ in PREMIX 1 EACH IV PRN ×3 (09:02→11:24)
[2017-02-20] MEDS: NEBIVOLOL 5 MG TABLET PO SCH (09:02)
[2017-02-20] MEDS: FLUTICASONE/SALMETEROL 500-50 DISKUS 14 DOSE INH SCH ×2 (09:05→20:59)
--- NOTE | 2017-02-20 09:50 | EKG Report ---
Stationary ECG Study [facility] Test Date: 02/20/2017 9:51:31 AM Pat Name: JOE BAXTER Department: Room: 116 Gender: F [employer]: MANDI : 1955 Requested by: Richard Leo Order Number: [id number] Reading MD: KE ARDON Intervals [place] Rate: 55 P: 52 ND: 122 QRS: -14 QRSD: 126 T: 130 QT: 511 QTc: 499 Interpretive Statements SINUS RHYTHM RIGHT BUNDLE BRANCH BLOCK MODERATE T-WAVE ABNORMALITY, CONSIDER LATERAL ISCHEMIA Electronically Signed On 02-20-17 19:23:41 CDT by KE ARDON [email or web address]
--- NOTE | 2017-02-20 10:25 | Cardiology Progress Note ---
Assessment and Plan (1) Troponin level elevated Status: Acute Assessment and plan: 1. 61-year-old BMI 43.3 BF with hypertension, diabetes, known asthma status post exacerbation with intubation November 2016 and again this admission extubated yesterday now feeling significantly better clinically. 2. She denies ever having any chest discomfort, but given to respiratory arrest , elevation of troponin to 2, and abnormal EKG (no right bundle branch block with deep T-wave inversions across the precordial leads suggesting anterior ischemia), would tentatively plan for heart catheterization in the morning to define her coronary anatomy. This is still more likely demand ischemia from status asthmaticus, but I believe the benefits of catheterization outweigh the risks given these concerns. Her father had a heart attack in his 60s, LDL of 118 are noted. 3. No PE or pneumonia on CTA 4. Sinus bradycardia, decrease bystolic to 2.5mg daily. I discussed with the patient the risks and benefits of heart catheterization including but not limited to: , stroke, heart attack, vascular damage, reaction to medicine or dye, bleeding requiring blood transfusion, failure of the procedure, and the possible need for planned or emergency surgery. I have answered all the patient's questions regarding the procedure, and the patient is agreeable to proceed. Current Visit: Yes (2) Asthma with exacerbation Status: Acute Current Visit: Yes (3) Respiratory arrest Status: Acute Current Visit: Yes Exam (Progress Note) - Constitutional Vitals: Period Temp Pulse Resp BP Sys/Sparks Pulse Ox Last 24 Hr 97.0 F-99.1 F 47-57 12-23 116-176/70-94 96-100 Result/EKG - Labs CBC & BMP: 02/20/17 04:44 02/20/17 04:44 Labs: Laboratory Results - last 24 hr 02/19/17 02/19/17 02/19/17 11:35 18:02 23:51 WBC RBC Hgb Hct MCV MCH MCHC RDW Plt Count MPV Neut % (Auto) Lymph % (Auto) [place] % (Auto) Eos % (Auto) Baso % (Auto) Neut # (Auto) Lymph # (Auto) [place] # (Auto) Eos # (Auto) Baso # (Auto) Total Counted Immature Gran % Nucleated RBC % Immature Gran # Segmented Neutrophils Band Neutrophils Lymphocytes Monocytes Nucleated RBCs # Platelet Estimate Giant Platelets Immature Plt Fraction Hypochromasia Microcytosis Ovalocytes ABG pH ABG pCO2 ABG pO2 ABG HCO3 ABG Total CO2 ABG O2 Saturation ABG Base Excess FiO2 Sodium Potassium Chloride Carbon Dioxide Anion Gap BUN Creatinine GFR Calculation BUN/Creatinine Ratio Glucose POC Glucose 134 H 136 H 156 H Calculated Osmolality Calcium Magnesium Theophylline 02/20/17 02/20/17 02/20/17 03:40 04:44 04:44 WBC 14.7 H RBC 4.35 Hgb 12.2 Hct 38.7 MCV 89.0 MCH 28 MCHC 31.5 L RDW 14.7 Plt Count 241 MPV 12.8 H Neut % (Auto) 86.6 H Lymph % (Auto) 7.1 L [place] % (Auto) 2.7 Eos % (Auto) 0.0 Baso % (Auto) 0.1 Neut # (Auto) 12.7 H Lymph # (Auto) 1.0 L [place] # (Auto) 0.4 Eos # (Auto) 0.0 Baso # (Auto) 0.0 Total Counted 100 Immature Gran % 3.5 Nucleated RBC % 0.0 Immature Gran # 0.52 Segmented Neutrophils 86 H Band Neutrophils 1 Lymphocytes 6 L Monocytes 7 Nucleated RBCs # 0.00 Platelet Estimate Adequate Giant Platelets Few Immature Plt Fraction 0.0 Hypochromasia 1+ Microcytosis Slight Ovalocytes Slight ABG pH 7.431 ABG pCO2 44.9 ABG pO2 116.8 H ABG HCO3 29.2 H ABG Total CO2 30.6 H ABG O2 Saturation 98.3 ABG Base Excess 4.3 H FiO2 28.00 Sodium 145 Potassium 3.1 L Chloride 108 H Carbon Dioxide 28 Anion Gap 12.1 BUN 28 H Creatinine 1.00 GFR Calculation 89 BUN/Creatinine Ratio 28.00 H Glucose 170 H POC Glucose Calculated Osmolality 297.7 Calcium 8.5 Magnesium 3.3 H Theophylline 02/20/17 02/20/17 04:44 06:26 WBC RBC Hgb Hct MCV MCH MCHC RDW Plt Count MPV Neut % (Auto) Lymph % (Auto) [place] % (Auto) Eos % (Auto) Baso % (Auto) Neut # (Auto) Lymph # (Auto) [place] # (Auto) Eos # (Auto) Baso # (Auto) Total Counted Immature Gran % Nucleated RBC % Immature Gran # Segmented Neutrophils Band Neutrophils Lymphocytes Monocytes Nucleated RBCs # Platelet Estimate Giant Platelets Immature Plt Fraction Hypochromasia Microcytosis Ovalocytes ABG pH ABG pCO2 ABG pO2 ABG HCO3 ABG Total CO2 ABG O2 Saturation ABG Base Excess FiO2 Sodium Potassium Chloride Carbon Dioxide Anion Gap BUN Creatinine GFR Calculation BUN/Creatinine Ratio Glucose POC Glucose 151 H Calculated Osmolality Calcium Magnesium Theophylline 19.3
--- NOTE | 2017-02-20 11:19 | Hospitalist Progress Note ---
Assessment and Plan (1) Status asthmaticus Status: Resolved Assessment and plan: Pulmonary assisting Current Visit: No (2) Hypertension Status: Chronic Current Visit: No Qualifiers: Hypertension type: essential hypertension Qualified Code(s): I10 - Essential (primary) hypertension (3) Asthma with exacerbation Status: Acute Assessment and plan: Duonebs, steroids, abx Pulmonary assisting Current Visit: Yes (4) Acute respiratory failure Status: Acute Assessment and plan: Pulmonary assisting Extubated 02/19/17 Current Visit: Yes (5) Leukocytosis Status: Acute Assessment and plan: Improving Current Visit: No (6) Troponin level elevated Status: Acute Assessment and plan: Cardiology assisting Plan for cardiac cath tomorrow Current Visit: Yes Hospitalist: Subjective Interval history: No acute events overnight. Complains of some abdominal pain. Denies sob or chest pain. Will transfer to the floor today. Exam - Constitutional Vitals: Period Temp Pulse Resp BP Sys/Sparks Pulse Ox Last 24 Hr 97.0 F-98.3 F 47-58 12-23 116-176/70-94 96-100 General appearance: over weight - Head Head exam: Present: normocephalic, atraumatic - Eye Eye exam: Present: EOMI Pupils: Present: FELISHA - ENT ENT exam: Present: normal exam - Neck Neck exam: Present: normal inspection - Respiratory Respiratory exam: Present: clear to auscultation bilaterally. Absent: wheezes - Cardiovascular Cardiovascular exam: Present: regular rate and rhythm - GI/Abdominal GI/Abdominal exam: Present: normal bowel sounds, soft. Absent: tenderness, rebound - Extremities Exam Extremities exam: Present: normal inspection - Back Exam Back exam: Present: normal inspection - Neurological Exam Neurological exam: Present: alert, oriented X3 - Psychiatric Psychiatric exam: Present: normal affect, normal mood - Skin Skin exam: Present: warm, intact Results - Labs CBC & BMP: 02/20/17 04:44 02/20/17 04:44
[2017-02-20] MEDS: PANTOPRAZOLE 40 MG TABLET PO SCH (11:22)
[2017-02-20] MEDS: LISINOPRIL/HCTZ 20-12.5 MG TABLET PO SCH (14:14)
[2017-02-20] MEDS: ALBUTEROL/IPRATROPIUM 3 ML NEB RESP TX PRN (16:15)
[2017-02-21] MEDS: INSULIN REGULAR 100 UNIT/ML SUBCUT SCH ×4 (01:21→18:06)
[2017-02-21] MEDS: methylPREDNISolone SOD SUC 40 MG/1 ML VIAL IV SCH ×2 (01:21→08:42)
[2017-02-21] MEDS: ALUMINUM/MAGNES/SIMETH MAX STR 30 ML UDCUP PO PRN (01:21)
[2017-02-21] MEDS: methylPREDNISolone SOD SUC 125 MG/2 ML VIAL IV SCH (01:32)
[2017-02-21] MEDS: PIPERACILLIN/TAZOBACTAM 3,375 MG in SODIUM CHLORIDE 0.9% 100 ML IV SCH ×3 (03:59→21:43)
[2017-02-21] MEDS: ALBUTEROL/IPRATROPIUM 3 ML NEB RESP TX PRN ×2 (05:59→14:13)
[2017-02-21 06:06] LABS: Basophils % 0.1 % (0.0-0.8); Hematocrit 38.1 VOL% (35.7-47.0); Immature Granulocytes % 2.4 %; Immature Granulocytes Absolute 0.51 #; Lymphocytes # 1.3 10*3/uL (1.4-4.0); Lymphocytes % 6.2 % (21.3-54.2); Mean Corpuscular HGB Conc 31.5 GM/DL (32-36); Mean Corpuscular Hemoglobin 28 PG (27-34); Mean Corpuscular Volume 88.6 FL (87-102); Mean Platelet Volume 12.7 FL (9.6-12.0); Monocytes # 0.8 10*3/uL (0.11-0.8); Monocytes % 3.9 % (1.7-12.7); NRBC # 0.06 10*3/uL; Neutrophils # 18.3 10*3/uL (1.4-7.4); Neutrophils % 87.4 % (38.7-73.9); Platelet Count 238 T/CUMM (130-400); Red Cell Distribution Width 14.8 % (9.3-17.3)
[2017-02-21 06:25] LABS: Band Neutrophils 1 % (0-10); Lymphocytes 5 % (20-55); Segmented Neutrophils 87 % (50-85); Total Cells Counted 100
[2017-02-21 06:26] LABS: Giant Platelets Few; Hypochromasia 1+; Microcytosis Slight; Platelet Estimate Adequate
[2017-02-21 06:31] LABS: Calcium 8.5 MG/DL (8.5-10.1); Potassium 3.7 MMOL/L (3.5-5.1)
--- NOTE | 2017-02-21 08:31 | Cardiology Progress Note ---
Assessment and Plan - Time spent with patient Time spent with patient: Less than 30 minutes (1) Status asthmaticus Status: Resolved Current Visit: No (2) Hypertension Status: Chronic Current Visit: No Qualifiers: Hypertension type: essential hypertension Qualified Code(s): I10 - Essential (primary) hypertension (3) Leukocytosis Status: Acute Current Visit: No (4) Troponin level elevated Status: Acute Current Visit: Yes Cardiology - PN: Subj Interval history: This morning I saw Ms. Suárez before 6:00 she was complaining of nausea and periumbilical discomfort. She states that they gave her her medicines on a empty stomach and she think this is what made her nauseated and sick she has had 2 episodes of emesis. No chest pain. I recommended that we postpone her left heart catheterization. It may be that she can have this done as an outpatient she had a mild troponin elevation she does have an abnormal EKG but has not had any angina she also has a normal transthoracic echo with a ejection fraction of 65% and normal diastolic parameters. I suspect this troponin elevation is from the right heart in her status asthmaticus situation or possibly demand ischemia on the left ventricle. She may need to follow-up as an outpatient for further evaluation. She has not experienced angina. Exam (Progress Note) - Constitutional Vitals: Period Temp Pulse Resp BP Sys/Sparks Pulse Ox Last 24 Hr 97.0 F-98.4 F 53-73 15-23 99-151/37-90 93-100 General appearance: morbidly obese - Eye Eye exam: Present: EOMI Pupils: Present: FELISHA - Respiratory Respiratory exam: Present: wheezes (She has good air movement scant wheezes with prolonged terminal phase of expiration) - Cardiovascular Cardiovascular exam: Present: regular rate and rhythm (No gallop or rub) - GI/Abdominal GI/Abdominal exam: Present: normal bowel sounds - Back Exam Back exam: Present: normal inspection - Neurological Exam Neurological exam: Present: alert, oriented X3 - Psychiatric Psychiatric exam: Present: normal affect, normal mood - Skin Skin exam: Present: normal color, warm, dry Result/EKG - Labs CBC & BMP: 02/21/17 05:29 02/21/17 05:29 Labs: Laboratory Results - last 24 hr 02/20/17 02/20/17 02/20/17 11:26 16:11 17:07 WBC RBC Hgb Hct MCV MCH MCHC RDW Plt Count MPV Neut % (Auto) Lymph % (Auto) [place] % (Auto) Eos % (Auto) Baso % (Auto) Neut # (Auto) Lymph # (Auto) [place] # (Auto) Eos # (Auto) Baso # (Auto) Total Counted Immature Gran % Nucleated RBC % Immature Gran # Segmented Neutrophils Band Neutrophils Lymphocytes Monocytes Nucleated RBCs # Platelet Estimate Giant Platelets Immature Plt Fraction Hypochromasia Microcytosis Sodium Potassium 3.9 Chloride Carbon Dioxide Anion Gap BUN Creatinine GFR Calculation BUN/Creatinine Ratio Glucose POC Glucose 162 H 142 H Calculated Osmolality Calcium Theophylline 02/20/17 02/21/17 02/21/17 19:31 00:09 05:29 WBC 21.0 H D RBC 4.30 Hgb 12.0 Hct 38.1 MCV 88.6 MCH 28 MCHC 31.5 L RDW 14.8 Plt Count 238 MPV 12.7 H Neut % (Auto) 87.4 H Lymph % (Auto) 6.2 L [place] % (Auto) 3.9 Eos % (Auto) 0.0 Baso % (Auto) 0.1 Neut # (Auto) 18.3 H Lymph # (Auto) 1.3 L [place] # (Auto) 0.8 Eos # (Auto) 0.0 Baso # (Auto) 0.0 Total Counted 100 Immature Gran % 2.4 Nucleated RBC % 0.3 Immature Gran # 0.51 Segmented Neutrophils 87 H Band Neutrophils 1 Lymphocytes 5 L Monocytes 7 Nucleated RBCs # 0.06 Platelet Estimate Adequate Giant Platelets Few Immature Plt Fraction 0.0 Hypochromasia 1+ Microcytosis Slight Sodium Potassium Chloride Carbon Dioxide Anion Gap BUN Creatinine GFR Calculation BUN/Creatinine Ratio Glucose POC Glucose 177 H 243 H Calculated Osmolality Calcium Theophylline 02/21/17 02/21/17 02/21/17 05:29 05:29 06:09 WBC RBC Hgb Hct MCV MCH MCHC RDW Plt Count MPV Neut % (Auto) Lymph % (Auto) [place] % (Auto) Eos % (Auto) Baso % (Auto) Neut # (Auto) Lymph # (Auto) [place] # (Auto) Eos # (Auto) Baso # (Auto) Total Counted Immature Gran % Nucleated RBC % Immature Gran # Segmented Neutrophils Band Neutrophils Lymphocytes Monocytes Nucleated RBCs # Platelet Estimate Giant Platelets Immature Plt Fraction Hypochromasia Microcytosis Sodium 143 Potassium 3.7 Chloride 108 H Carbon Dioxide 28 Anion Gap 10.7 BUN 25 H Creatinine 1.10 H GFR Calculation 80 BUN/Creatinine Ratio 22.00 H Glucose 138 H POC Glucose 145 H Calculated Osmolality 290.0 Calcium 8.5 Theophylline 20.7 H* 02/21/17 07:40 WBC RBC Hgb Hct MCV MCH MCHC RDW Plt Count MPV Neut % (Auto) Lymph % (Auto) [place] % (Auto) Eos % (Auto) Baso % (Auto) Neut # (Auto) Lymph # (Auto) [place] # (Auto) Eos # (Auto) Baso # (Auto) Total Counted Immature Gran % Nucleated RBC % Immature Gran # Segmented Neutrophils Band Neutrophils Lymphocytes Monocytes Nucleated RBCs # Platelet Estimate Giant Platelets Immature Plt Fraction Hypochromasia Microcytosis Sodium Potassium Chloride Carbon Dioxide Anion Gap BUN Creatinine GFR Calculation BUN/Creatinine Ratio Glucose POC Glucose 172 H Calculated Osmolality Calcium Theophylline
[2017-02-21] MEDS ORDERED: ONDANSETRON 4 MG/2 ML VIAL IV PRN (08:39)
[2017-02-21] MEDS: LISINOPRIL/HCTZ 20-12.5 MG TABLET PO SCH (08:41)
[2017-02-21] MEDS: ASPIRIN 325 MG TABLET PO SCH (08:41)
[2017-02-21] MEDS: PANTOPRAZOLE 40 MG TABLET PO SCH (08:41)
[2017-02-21] MEDS: NEBIVOLOL 5 MG TABLET PO SCH (08:41)
--- NOTE | 2017-02-21 08:47 | Pulmonology Progress Note ---
Pulmonary - PN: Subj Interval history: This 61-year-old black female has severe asthma with acute exacerbation, status asthmaticus, and respiratory failure. She is responsive on the ventilator. Still having some wheezing. Her airway pressures are little higher today. PCO2 is elevated at 47 despite mechanical ventilation. Normal pH at that level. Will add Aminophyllin. Will start CPAP today. 02/19/2017 patient with severe asthma and acute exacerbation. Clearly she is better today. No wheezing. Tolerating CPAP. Airway pressures down from about 35-23. Should be able to get her extubated today. 02/20/2017 patient was extubated without difficulty. O2 sat 97% on room air. Still has some expiratory wheezing but sounds better. Had long discussion with her about the need to be on a controller inhaler. Apparently she has been on Advair in the past and she is not sure why she is not on it now. She does have some difficulty purchasing her medications. I will start her on Advair 500/50 puffs one twice daily today. It was discussed with her the need to use 1 puff twice a day no more in the last. Of course if she is unable to get other brands of controller inhalers with a better pricing structure for her insurance and we could go to 1 of those. She should be able to move to the floor. 02/21/2017 this 61-year-old lady has severe asthma. It has not been well controlled outpatient as she has not been on any controller inhalers. She had another acute exacerbation requiring mechanical ventilation this admission. Presently we have her on Advair. We need to make arrangements for her to be on a combination steroid long-acting bronchodilator at discharge. Not sure what her insurance will cover. We will asked the pharmacy to help. Exam (Progress Note) - Constitutional Vitals: Period Temp Pulse Resp BP Sys/Sparks Pulse Ox Last 24 Hr 97.0 F-98.4 F 53-73 15-23 99-151/37-90 93-100 Exam: Vital signs normal. Pupils react to light. She is alert and oriented. On room air was 97% O2 sat neck supple. Chest reveals slightly prolonged expiratory phase with minimal wheezes. Equal breath sounds. Heart normal rate and rhythm no murmurs. Abdomen soft nontender no masses. Remedies no clubbing cyanosis or edema. Calves nontender. Results - Labs CBC & BMP: 02/21/17 05:29 02/21/17 05:29 Lab Results: I have reviewed the past 24 hour labs Assessment and Plan (1) Acute respiratory failure Status: Acute Assessment and plan: ABGs look okay on the ventilator. She is still fairly tight but her peak airway pressures were only around 24. Hopefully can wean her over the next day or so. 02/18/2017 PCO2 is a little elevated. Easily oxygenated. Airway pressures in the low 30s. Adding Aminophyllin. 02/19/2017 this is due to status asthmaticus. It has improved. PCO2 is a little bit high. Will bump with Diamox for 3 days. She should be ready for extubation. 02/20/2017 acute respiratory failure resolved. Not requiring oxygen. 02/21/2017 respiratory failure has resolved. Current Visit: Yes (2) Asthma with exacerbation Status: Acute Assessment and plan: Intravenous corticosteroids, nebulized bronchodilators, empiric antibiotics. She will clearly need a controller medication such as Advair or Symbicort or Breo prior to discharge 02/18/2017 continuing bronchodilator steroids antibiotics. Aminophyllin added. Start CPAP's. Probably not quite ready for extubation. 02/19/2017 not wheezing. Alert and calm. Check ABGs and mechanics with CPAP this morning. Should be able to extubate. 02/20/2017 much improved. Minimal wheezes. Room air O2 sat 97%. Will reduce steroids. Continuing Aminophyllin for now. Probably can change theophylline to oral medications tomorrow. Can move to floor. 02/21/2017 taper steroids. Will stop Aminophyllin. Theophylline level is 21. She is having some nausea. Current Visit: Yes
[2017-02-21] MEDS: CETIRIZINE 10 MG TABLET PO SCH (14:27)
--- NOTE | 2017-02-21 16:11 | Hospitalist Progress Note ---
Hospitalist: Subjective Interval history: 61-year-old -[place] female with history of asthma who was transferred from intensive care unit, which she was on mechanical ventilation due to respiratory failure from severe asthma exacerbation. She reports that breathing is improving. Exam - Constitutional Vitals: Period Temp Pulse Resp BP Sys/Sparks Pulse Ox Last 24 Hr 97.0 F-98.4 F 53-73 16-22 99-135/37-75 93-100 Exam: General: [No Acute Distress] HEENT: [Normocephalic, atraumatic, Extra ocular movements intact] Neck: [Supple, No JVD] Chest: [Minimal wheezing] CV: [S1 + S2 audible without murmur, gallop or rub] Abd: [soft, NT, Non-distended, BS +] Ext: [No edema] Skin: [No purpura, bruising or rash] Rheumatologic: [No Joint deformities] Neurologic: [Strength 5/5 all extremities, no gross sensory deficits] Results - Labs CBC & BMP: 02/21/17 05:29 02/21/17 05:29 - Impressions Assessment and Plan: Chronic intermittent asthma with acute exacerbation exacerbation and acute respiratory failure Status: Acute Assessment and plan: Acute respiratory failure has resolved. She was extubated 02/19. Asthma exacerbation is also improving. Current Visit: Yes Hypertension, Ess Status: Chronic Current Visit: No Qualifiers: Hypertension type: essential hypertension Qualified Code(s): I10 - Essential (primary) hypertension
[2017-02-21] MEDS: FLUTICASONE/SALMETEROL 500-50 DISKUS 14 DOSE INH SCH ×2 (18:06→20:38)
[2017-02-21] MEDS ORDERED: methylPREDNISolone SOD SUC 40 MG/1 ML VIAL IV SCH (21:00)
[2017-02-22] MEDS: INSULIN REGULAR 100 UNIT/ML SUBCUT SCH ×4 (00:18→18:01)
[2017-02-22] MEDS: PIPERACILLIN/TAZOBACTAM 3,375 MG in SODIUM CHLORIDE 0.9% 100 ML IV SCH ×3 (05:21→21:10)
--- NOTE | 2017-02-22 08:15 | Pulmonology Progress Note ---
Pulmonary - PN: Subj Interval history: This 61-year-old black female has severe asthma with acute exacerbation, status asthmaticus, and respiratory failure. She is responsive on the ventilator. Still having some wheezing. Her airway pressures are little higher today. PCO2 is elevated at 47 despite mechanical ventilation. Normal pH at that level. Will add Aminophyllin. Will start CPAP today. 02/19/2017 patient with severe asthma and acute exacerbation. Clearly she is better today. No wheezing. Tolerating CPAP. Airway pressures down from about 35-23. Should be able to get her extubated today. 02/20/2017 patient was extubated without difficulty. O2 sat 97% on room air. Still has some expiratory wheezing but sounds better. Had long discussion with her about the need to be on a controller inhaler. Apparently she has been on Advair in the past and she is not sure why she is not on it now. She does have some difficulty purchasing her medications. I will start her on Advair 500/50 puffs one twice daily today. It was discussed with her the need to use 1 puff twice a day no more in the last. Of course if she is unable to get other brands of controller inhalers with a better pricing structure for her insurance and we could go to 1 of those. She should be able to move to the floor. 02/21/2017 this 61-year-old lady has severe asthma. It has not been well controlled outpatient as she has not been on any controller inhalers. She had another acute exacerbation requiring mechanical ventilation this admission. Presently we have her on Advair. We need to make arrangements for her to be on a combination steroid long-acting bronchodilator at discharge. Not sure what her insurance will cover. We will asked the pharmacy to help. 02/22/2017 patient is doing better. Still has some mild wheezing. I do think we can change to oral prednisone. Probably plan discharge tomorrow. Will have pharmacy get with her to arrange for her to have controller medications at discharge. She can have Advair, Breo, or Symbicort. Which ever one she can get with her insurance best Exam (Progress Note) - Constitutional Vitals: Period Temp Pulse Resp BP Sys/Sparks Pulse Ox Last 24 Hr 97.2 F-98.2 F 59-73 17-20 103-134/49-63 92-100 Exam: Vital signs normal. Pupils react to light. She is alert and oriented. On room air was 97% O2 sat neck supple. Chest reveals slightly prolonged expiratory phase with minimal wheezes. Equal breath sounds. Heart normal rate and rhythm no murmurs. Abdomen soft nontender no masses. Remedies no clubbing cyanosis or edema. Calves nontender. Results - Labs CBC & BMP: 02/21/17 05:29 02/21/17 05:29 Lab Results: I have reviewed the past 24 hour labs Assessment and Plan (1) Acute respiratory failure Status: Acute Assessment and plan: ABGs look okay on the ventilator. She is still fairly tight but her peak airway pressures were only around 24. Hopefully can wean her over the next day or so. 02/18/2017 PCO2 is a little elevated. Easily oxygenated. Airway pressures in the low 30s. Adding Aminophyllin. 02/19/2017 this is due to status asthmaticus. It has improved. PCO2 is a little bit high. Will bump with Diamox for 3 days. She should be ready for extubation. 02/20/2017 acute respiratory failure resolved. Not requiring oxygen. 02/21/2017 respiratory failure has resolved. 02/22/2017 no longer in respiratory failure. Current Visit: Yes (2) Asthma with exacerbation Status: Acute Assessment and plan: Intravenous corticosteroids, nebulized bronchodilators, empiric antibiotics. She will clearly need a controller medication such as Advair or Symbicort or Breo prior to discharge 02/18/2017 continuing bronchodilator steroids antibiotics. Aminophyllin added. Start CPAP's. Probably not quite ready for extubation. 02/19/2017 not wheezing. Alert and calm. Check ABGs and mechanics with CPAP this morning. Should be able to extubate. 02/20/2017 much improved. Minimal wheezes. Room air O2 sat 97%. Will reduce steroids. Continuing Aminophyllin for now. Probably can change theophylline to oral medications tomorrow. Can move to floor. 02/21/2017 taper steroids. Will stop Aminophyllin. Theophylline level is 21. She is having some nausea. 02/22/2017 continue tapering steroids. Still having some nausea. Should be able to be discharged tomorrow. Current Visit: Yes
[2017-02-22] MEDS: FLUTICASONE/SALMETEROL 500-50 DISKUS 14 DOSE INH SCH ×2 (09:20→21:10)
[2017-02-22] MEDS: NEBIVOLOL 5 MG TABLET PO SCH (09:21)
[2017-02-22] MEDS: predniSONE 20 MG TABLET PO SCH (09:22)
[2017-02-22] MEDS: LISINOPRIL/HCTZ 20-12.5 MG TABLET PO SCH (09:22)
[2017-02-22] MEDS: ASPIRIN 325 MG TABLET PO SCH (09:22)
[2017-02-22] MEDS: PANTOPRAZOLE 40 MG TABLET PO SCH (09:23)
[2017-02-22] MEDS: CETIRIZINE 10 MG TABLET PO SCH (09:24)
[2017-02-22] MEDS: ALBUTEROL/IPRATROPIUM 3 ML NEB RESP TX PRN (15:55)
--- NOTE | 2017-02-22 16:06 | Hospitalist Progress Note ---
Hospitalist: Subjective Interval history: 61-year-old female with asthma exacerbation. She reports improved breathing. Exam - Constitutional Vitals: Period Temp Pulse Resp BP Sys/Sparks Pulse Ox Last 24 Hr 97.2 F-98.2 F 53-73 16-22 103-134/49-77 92-98 Exam: General: [No Acute Distress] HEENT: [Normocephalic, atraumatic, Extra ocular movements intact] Neck: [Supple, No JVD] Chest: [Minimal wheezing] CV: [S1 + S2 audible without murmur, gallop or rub] Abd: [soft, NT, Non-distended, BS +] Ext: [No edema] Skin: [No purpura, bruising or rash] Rheumatologic: [No Joint deformities] Neurologic: [Strength 5/5 all extremities, no gross sensory deficits] Results - Labs CBC & BMP: 02/21/17 05:29 02/21/17 05:29 - Impressions Chronic intermittent asthma with acute exacerbation exacerbation and acute respiratory failure Status: Acute Assessment and plan: Acute respiratory failure has resolved. She was extubated 02/19. Asthma exacerbation is also improving. She likely can be discharged home in the morning on medication Current Visit: Yes Hypertension, Ess Status: Chronic Current Visit: No Qualifiers: Hypertension type: essential hypertension Qualified Code(s): I10 - Essential (primary) hypertension
[2017-02-23] MEDS: INSULIN REGULAR 100 UNIT/ML SUBCUT SCH ×2 (00:43→09:15)
[2017-02-23] MEDS: PIPERACILLIN/TAZOBACTAM 3,375 MG in SODIUM CHLORIDE 0.9% 100 ML IV SCH (04:55)
--- NOTE | 2017-02-23 07:48 | Pulmonology Progress Note ---
Pulmonary - PN: Subj Interval history: This 61-year-old black female has severe asthma with acute exacerbation, status asthmaticus, and respiratory failure. She is responsive on the ventilator. Still having some wheezing. Her airway pressures are little higher today. PCO2 is elevated at 47 despite mechanical ventilation. Normal pH at that level. Will add Aminophyllin. Will start CPAP today. 02/19/2017 patient with severe asthma and acute exacerbation. Clearly she is better today. No wheezing. Tolerating CPAP. Airway pressures down from about 35-23. Should be able to get her extubated today. 02/20/2017 patient was extubated without difficulty. O2 sat 97% on room air. Still has some expiratory wheezing but sounds better. Had long discussion with her about the need to be on a controller inhaler. Apparently she has been on Advair in the past and she is not sure why she is not on it now. She does have some difficulty purchasing her medications. I will start her on Advair 500/50 puffs one twice daily today. It was discussed with her the need to use 1 puff twice a day no more in the last. Of course if she is unable to get other brands of controller inhalers with a better pricing structure for her insurance and we could go to 1 of those. She should be able to move to the floor. 02/21/2017 this 61-year-old lady has severe asthma. It has not been well controlled outpatient as she has not been on any controller inhalers. She had another acute exacerbation requiring mechanical ventilation this admission. Presently we have her on Advair. We need to make arrangements for her to be on a combination steroid long-acting bronchodilator at discharge. Not sure what her insurance will cover. We will asked the pharmacy to help. 02/22/2017 patient is doing better. Still has some mild wheezing. I do think we can change to oral prednisone. Probably plan discharge tomorrow. Will have pharmacy get with her to arrange for her to have controller medications at discharge. She can have Advair, Breo, or Symbicort. Which ever one she can get with her insurance best 02/23/2017 patient doing well. On oral prednisone. May be discharged home 40 mg daily of prednisone for about 5 more days. We have arranged for her to have Breo to use at home. She wants to follow-up with me postop. We will set her up with an appointment in 4 weeks. She lives in [place] and sees a Dr. Portillo as her primary physician in [place], which is about [address] [place] from [place]. Exam (Progress Note) - Constitutional Vitals: Period Temp Pulse Resp BP Sys/Sparks Pulse Ox Last 24 Hr 97.2 F-98.3 F 53-67 16-22 101-129/45-77 91-99 Exam: Vital signs normal. Pupils react to light. She is alert and oriented. On room air was 97% O2 sat neck supple. Chest reveals slightly prolonged expiratory phase with no wheezes. Equal breath sounds. Heart normal rate and rhythm no murmurs. Abdomen soft nontender no masses. Remedies no clubbing cyanosis or edema. Calves nontender. Results - Labs CBC & BMP: 02/21/17 05:29 02/21/17 05:29 Lab Results: I have reviewed the past 24 hour labs Assessment and Plan (1) Acute respiratory failure Status: Acute Assessment and plan: ABGs look okay on the ventilator. She is still fairly tight but her peak airway pressures were only around 24. Hopefully can wean her over the next day or so. 02/18/2017 PCO2 is a little elevated. Easily oxygenated. Airway pressures in the low 30s. Adding Aminophyllin. 02/19/2017 this is due to status asthmaticus. It has improved. PCO2 is a little bit high. Will bump with Diamox for 3 days. She should be ready for extubation. 02/20/2017 acute respiratory failure resolved. Not requiring oxygen. 02/21/2017 respiratory failure has resolved. 02/22/2017 no longer in respiratory failure. 02/23/2017 this has resolved. Not requiring oxygen. Current Visit: Yes (2) Asthma with exacerbation Status: Acute Assessment and plan: Intravenous corticosteroids, nebulized bronchodilators, empiric antibiotics. She will clearly need a controller medication such as Advair or Symbicort or Breo prior to discharge 02/18/2017 continuing bronchodilator steroids antibiotics. Aminophyllin added. Start CPAP's. Probably not quite ready for extubation. 02/19/2017 not wheezing. Alert and calm. Check ABGs and mechanics with CPAP this morning. Should be able to extubate. 02/20/2017 much improved. Minimal wheezes. Room air O2 sat 97%. Will reduce steroids. Continuing Aminophyllin for now. Probably can change theophylline to oral medications tomorrow. Can move to floor. 02/21/2017 taper steroids. Will stop Aminophyllin. Theophylline level is 21. She is having some nausea. 02/22/2017 continue tapering steroids. Still having some nausea. Should be able to be discharged tomorrow. 02/23/2017 this has improved. Plans for discharge made. Needs prednisone 40 mg daily for 5 more days. Needs Breo 200 puffs 1 daily long-term going forward. We did discuss using this once a day and once a day only. Current Visit: Yes
[2017-02-23] MEDS ORDERED: BREO ELLIPTA 200MCG/25MCG INH SCH (09:00)
[2017-02-23] MEDS: ASPIRIN 325 MG TABLET PO SCH (09:10)
[2017-02-23] MEDS: NEBIVOLOL 5 MG TABLET PO SCH (09:11)
[2017-02-23] MEDS: CETIRIZINE 10 MG TABLET PO SCH (09:11)
[2017-02-23] MEDS: LISINOPRIL/HCTZ 20-12.5 MG TABLET PO SCH (09:11)
[2017-02-23] MEDS: predniSONE 20 MG TABLET PO SCH (09:12)
[2017-02-23] MEDS: PANTOPRAZOLE 40 MG TABLET PO SCH (09:13)
[2017-02-23] MEDS: ALBUTEROL/IPRATROPIUM 3 ML NEB RESP TX PRN (09:26)
--- NOTE | 2017-02-23 11:12 | Discharge Summary ---
Hospital Course - Hospital Course Hospital Course: 61 year old female with a past medical history significant for hypertension, chronic intermittent asthma is admitted to intensive care unit as a transfer from [facility] for severe SOB. Per ER report, the patient was found to be in acute hypoxemic and hypercapnic respiratory failure and was intubated on arrival at [facility] and immediately transferred to [facility] to further evaluation. On arrival at [facility], the patient was intubated yet responding to verbal commands, moving her extremities at will. She was started on propofol, levaquin and given breathing treatments in the ED. she was managed in intensive care unit. Dr. Leonard from pulmonary service was following. She has some mild elevation in troponins likely from some supply demand mismatch. She was being followed by cardiology and was on aspirin and Bystolic. There was no evidence of [place] . She was treated with IV antibiotics IV steroids and bronchodilators. Currently she was stabilized and extubated and transferred to the medical floor she continued to improve with treatment. Her steroids were tapered. Wheezing and cough has significantly improved and is felt that she has reached maximal hospital benefit and being discharged home on indication. Prescriptions were provided. Follow follow-up will be with cardiolog, Dr. Leonard in a few weeks as well as with her primary care physician. Discharge time 35 minutes. - Time spent with patient Time with patient DS: Greater than 30 minutes Diagnosis - Discharge Diagnosis (1) Acute respiratory failure with hypercapnia Status: Resolved (2) Asthma with exacerbation Status: Resolved Discharge Plan - Discharge Data Condition at Discharge: Stable Discharge Diet: advance to your usual diet Activity: resume usual activities as tolerated Hygiene: no restrictions Weight Bearing at Discharge: full weight bearing Contact your physician if you experience:: Shortness of breath - Discharge Medications New Aspirin Tab 325 mg PO DAILY #30 tablet Nebivolol [Bystolic] 2.5 mg PO DAILY #30 tablet predniSONE TAB [PredniSONE] 40 mg PO BEDTIME #5 tablet Continue Levocetirizine Dihydrochloride [Xyzal] 5 mg PO DAILY predniSONE TAB [PredniSONE] See Taper PO BID #52 tablet Albuterol Inhaler [Proventil Inhaler] 2 puff INH Q6H PRN #1 PRN Reason: Shortness Of Breath/Wheezing Lisinopril/Hydrochlorothiazide [Lisinopril-Hctz 20-12.5 mg Tab] 2 each PO DAILY - Follow Up or Referral - Forms/Instructions Exam - Constitutional Vitals: Period Temp Pulse Resp BP Sys/Sparks Pulse Ox Last 24 Hr 96.6 F-98.3 F 51-79 15-22 101-129/45-68 91-99 Exam: General: No Acute Distress HEENT: Normocephalic, atraumatic, Extra ocular movements intact Neck: Supple, No JVD Chest: Clear to auscultation B/L CV: S1 + S2 audible without murmur, gallop or rub Abd: soft, NT, Non-distended, BS + Ext: No edema Skin: No purpura, bruising or rash Rheumatologic: No Joint deformities Neurologic: Strength 5/5 all extremities, no gross sensory deficits Discharge Results Procedures and tests throughout hospitalization: Pending Orders 02/20/17 14:50 CL heart Routine Labs on day of discharge: Labs from last 24 hours 02/23/17 02/23/17 02/22/17 07:11 00:08 19:10 POC Glucose 93 161 H 181 H 02/22/17 02/22/17 15:42 11:34 POC Glucose 174 H 117 H DS: Provider Date of admission: 02/17/17 09:54 Primary care physician: . No PCP Attending physician on admission: Brandon Guajardo MD Consults: 02/17/17 10:20 Consult to Physician [CONS] Routine Comment: Suspected PNA, COPD exac, vent mgmt Consulting Provider: Steven Leonard Consulting Provider Notified: Yes Consult to Specialist Group: Pulmonology Person Notified: DR. LEONARD Date Notified: 02/17/17 Time Notified: 12:15 02/17/17 12:22 Consult to Physician [CONS] Routine Comment: acute resp failure, bradycardia/elevated troponin Consulting Provider: Ben Santana 02/19/17 20:46 Consult to Physical Therapy [CONS] Routine Reason for Physical Therapy: Other Consult Comment: off vent today 02/22/17 08:46 Consult to Pharmacy [CONS] Routine Reason for Pharmacy Consult: Other Comment: Pt home inhaler program. Advair 500/50 1 puff bid. Discharging clinician: Smooth Villalta MD
--- NOTE | 2017-02-23 11:27 | Discharge Summary ---
Hospital Course - Hospital Course Hospital Course: 61 year old female with a past medical history significant for hypertension, chronic intermittent asthma is admitted to intensive care unit as a transfer from [facility] for severe SOB. Per ER report, the patient was found to be in acute hypoxemic and hypercapnic respiratory failure and was intubated on arrival at [facility] and immediately transferred to [facility] to further evaluation. On arrival at [facility], the patient was intubated yet responding to verbal commands, moving her extremities at will. She was started on propofol, levaquin and given breathing treatments in the ED. she was managed in intensive care unit. Dr. Leonard from pulmonary service was following. She has some mild elevation in troponins likely from some supply demand mismatch. She was being followed by cardiology and was on aspirin and Bystolic. There was no evidence of [place] . She was treated with IV antibiotics IV steroids and bronchodilators. Currently she was stabilized and extubated and transferred to the medical floor she continued to improve with treatment. Her steroids were tapered. Wheezing and cough has significantly improved and is felt that she has reached maximal hospital benefit and being discharged home on indication. Prescriptions were provided. Follow follow-up will be with cardiolog, Dr. Leonard in a few weeks as well as with her primary care physician. Discharge time 35 minutes. Diagnosis - Discharge Diagnosis (1) Asthma with exacerbation Status: Resolved Discharge Plan - Discharge Medications New Aspirin Tab 325 mg PO DAILY #30 tablet Nebivolol [Bystolic] 2.5 mg PO DAILY #30 tablet predniSONE TAB [PredniSONE] 40 mg PO BEDTIME #5 tablet Continue Levocetirizine Dihydrochloride [Xyzal] 5 mg PO DAILY predniSONE TAB [PredniSONE] See Taper PO BID #52 tablet Albuterol Inhaler [Proventil Inhaler] 2 puff INH Q6H PRN #1 PRN Reason: Shortness Of Breath/Wheezing Lisinopril/Hydrochlorothiazide [Lisinopril-Hctz 20-12.5 mg Tab] 2 each PO DAILY - Follow Up or Referral Follow Up: Eva Maguire DO [Physician] - 1 Month Steven Leonard MD [Physician] - 2 Weeks - Forms/Instructions Exam - Constitutional Vitals: Period Temp Pulse Resp BP Sys/Sparks Pulse Ox Last 24 Hr 96.6 F-98.3 F 51-79 15-22 101-129/45-68 91-99 Discharge Results Procedures and tests throughout hospitalization: Pending Orders 02/20/17 14:50 CL heart Routine Labs on day of discharge: Labs from last 24 hours 02/23/17 02/23/17 02/22/17 07:11 00:08 19:10 POC Glucose 93 161 H 181 H 02/22/17 02/22/17 15:42 11:34 POC Glucose 174 H 117 H DS: Provider Date of admission: 02/17/17 09:54 Primary care physician: . No PCP Attending physician on admission: Brandon Guajardo MD Consults: 02/17/17 10:20 Consult to Physician [CONS] Routine Comment: Suspected PNA, COPD exac, vent mgmt Consulting Provider: Steven Leonard Consulting Provider Notified: Yes Consult to Specialist Group: Pulmonology Person Notified: DR. LEONARD Date Notified: 02/17/17 Time Notified: 12:15 02/17/17 12:22 Consult to Physician [CONS] Routine Comment: acute resp failure, bradycardia/elevated troponin Consulting Provider: Ben Santana 02/19/17 20:46 Consult to Physical Therapy [CONS] Routine Reason for Physical Therapy: Other Consult Comment: off vent today 02/22/17 08:46 Consult to Pharmacy [CONS] Routine Reason for Pharmacy Consult: Other Comment: Pt home inhaler program. Advair 500/50 1 puff bid. Discharging clinician: Smooth Villalta MD
[2017-02-23 16:14] VITALS: BP 121/59
== END 2017-02-23 15:55 | disposition home or self-care (01) | DRG 189 ==
LOC: EDBD → EDUNIT# → N.ED 08:09 → SUATTDRO 09:54 → N.EDINP 09:54 → N.ICU 10:59 → N.2E 02-20 16:00
PROVIDERS: ADMIT Internal Medicine; ATTEND Hospitalist

== ENCOUNTER 2017-03-26 17:19 | Inpatient (IN) ==
[2017-03-26 18:57] LABS: Basophils % 0.1 % (0.0-0.8); Hematocrit 40.9 VOL% (35.7-47.0); Hemoglobin 13.2 GM/DL (12.0-16.0); Immature Granulocytes % 0.4 %; Immature Granulocytes Absolute 0.05 #; Lymphocytes # 0.8 10*3/uL (1.4-4.0); Lymphocytes % 6.7 % (21.3-54.2); Mean Corpuscular HGB Conc 32.3 GM/DL (32-36); Mean Corpuscular Hemoglobin 28 PG (27-34); Mean Corpuscular Volume 86.3 FL (87-102); Monocytes # 0.1 10*3/uL (0.11-0.8); Monocytes % 0.6 % (1.7-12.7); Neutrophils # 11.2 10*3/uL (1.4-7.4); Neutrophils % 92.2 % (38.7-73.9); Platelet Count 292 T/CUMM (130-400); Red Blood Count 4.74 MC/CUMM (3.8-5.5); Red Cell Distribution Width 14.6 % (9.3-17.3); White Blood Count 12.1 T/CUMM (4-12)
[2017-03-26 19:20] LABS: ABG HCO3 26.1 MMOL/L (20-26); ABG Oxygen Saturation 95.8 % (95-100); ABG PCO2 42.3 MM HG (35-48); ABG PH 7.411 (7.35-7.45); ABG PO2 77.3 MM HG (80-95); ABG TCO2 23.4 MMOL/L (23-27); Allen Test Positive; Pt O2 Delivery Device Room Air
[2017-03-26 19:23] LABS: Lymphocytes 4 % (20-55); Platelet Estimate Adequate; Segmented Neutrophils 96 % (50-85); Total Cells Counted 100
[2017-03-26 19:27] LABS: Calcium 9.7 MG/DL (8.5-10.1); Osmolality,Calculated 282.3 MOS/KG (273-304)
[2017-03-26] MEDS ORDERED: ALBUTEROL 2.5 MG/3 ML NEB RESP TX PRN (23:03)
[2017-03-26] MEDS ORDERED: LEVOFLOXACIN INJ 750 MG in PREMIX 1 EACH IV STA (23:03)
[2017-03-26] MEDS ORDERED: ONDANSETRON 4 MG/2 ML VIAL IV PRN (23:03)
[2017-03-27] MEDS ORDERED: LEVOFLOXACIN INJ 150 ML IV ONE (00:01)
[2017-03-27] MEDS: ALBUTEROL/IPRATROPIUM 3 ML NEB RESP TX SCH ×4 (01:10→20:20)
[2017-03-27 06:16] LABS: Basophils % 0.1 % (0.0-0.8); Hematocrit 37.4 VOL% (35.7-47.0); Hemoglobin 12.3 GM/DL (12.0-16.0); Immature Granulocytes % 0.4 %; Immature Granulocytes Absolute 0.05 #; Lymphocytes # 1.5 10*3/uL (1.4-4.0); Lymphocytes % 13.4 % (21.3-54.2); Mean Corpuscular HGB Conc 32.9 GM/DL (32-36); Mean Corpuscular Hemoglobin 28 PG (27-34); Mean Corpuscular Volume 86.2 FL (87-102); Mean Platelet Volume 12.5 FL (9.6-12.0); Monocytes # 0.3 10*3/uL (0.11-0.8); Monocytes % 2.8 % (1.7-12.7); Neutrophils # 9.5 10*3/uL (1.4-7.4); Neutrophils % 83.3 % (38.7-73.9); Platelet Count 290 T/CUMM (130-400); Red Blood Count 4.34 MC/CUMM (3.8-5.5); Red Cell Distribution Width 14.7 % (9.3-17.3); White Blood Count 11.4 T/CUMM (4-12)
[2017-03-27 06:48] LABS: Albumin 3.7 G/DL (3.4-5.0); Bilirubin,Total 0.5 MG/DL (0.2-1.0); Calcium 9.6 MG/DL (8.5-10.1); Osmolality,Calculated 280.4 MOS/KG (273-304)
[2017-03-27] MEDS: ENOXAPARIN 40 MG/0.4 ML SYRINGE SUBCUT SCH (08:29)
[2017-03-27] MEDS ORDERED: PANTOPRAZOLE 40 MG TABLET PO SCH (09:00)
[2017-03-27] MEDS ORDERED: ALUM/MAG/SIMETH/LIDO VISC 1:1 30 ML BOTTLE PO PRN (11:21)
[2017-03-27] MEDS: methylPREDNISolone SOD SUC 40 MG/1 ML VIAL IV SCH ×2 (13:23→23:44)
[2017-03-27] MEDS: PANTOPRAZOLE 40 MG TABLET PO SCH (20:31)
[2017-03-27] MEDS: LEVOFLOXACIN INJ 750 MG in PREMIX 1 EACH IV SCH (20:32)
[2017-03-28] MEDS: ALBUTEROL/IPRATROPIUM 3 ML NEB RESP TX SCH ×4 (00:56→19:17)
[2017-03-28] MEDS: ENOXAPARIN 40 MG/0.4 ML SYRINGE SUBCUT SCH (09:09)
[2017-03-28] MEDS: PANTOPRAZOLE 40 MG TABLET PO SCH ×2 (09:09→20:13)
[2017-03-28] MEDS: methylPREDNISolone SOD SUC 40 MG/1 ML VIAL IV SCH ×2 (13:00→23:12)
[2017-03-28] MEDS: CYCLOBENZAPRINE 10 MG TABLET PO SCH ×2 (16:48→20:13)
[2017-03-28] MEDS: LEVOFLOXACIN INJ 750 MG in PREMIX 1 EACH IV SCH (20:14)
[2017-03-29] MEDS: ALBUTEROL/IPRATROPIUM 3 ML NEB RESP TX SCH ×3 (00:22→13:52)
[2017-03-29] MEDS: PANTOPRAZOLE 40 MG TABLET PO SCH (08:55)
[2017-03-29] MEDS: ENOXAPARIN 40 MG/0.4 ML SYRINGE SUBCUT SCH (08:55)
[2017-03-29] MEDS: CYCLOBENZAPRINE 10 MG TABLET PO SCH ×3 (08:56→17:40)
[2017-03-29] MEDS ORDERED: methylPREDNISolone SOD SUC 40 MG/1 ML VIAL IV SCH (09:30)
[2017-03-29 18:23] VITALS: BP 109/45
== END 2017-03-29 18:42 | disposition home health service (06) | DRG 194 ==
LOC: EDUNIT# → EDBD → N.ED 17:19 → N.EDINP 17:19 → OBSVTOIN 23:03 → N.5E 03-27 00:14
PROVIDERS: ADMIT Internal Medicine; ATTEND Internal Medicine